=== PATIENT | female | born 1965 | race Caucasian/White ===

== ENCOUNTER → 2016-12-09 | Outpatient (CLI) | payer MEDICAID ==
--- NOTE | 2016-12-12 08:13 | MM ---
Reason for exam: additional evaluation requested from prior study. Last mammogram was performed 1 year ago. History: Patient is postmenopausal. Family history of breast cancer in maternal grandmother at age 60. Benign US LT VAD breast biopsy of the left breast, September 08, 2011. Benign US right guided mammotome of the right breast, February 15, 2008. Physical Findings: Nurse Summary: 1.5cm nodule in the right axilla (nurse dw). MG 3D Diag Mammo W/Cad CANDACE Bilateral CC and MLO view(s) were taken. XCCL view(s) were taken of the right breast. Prior study comparison: December 08, 2015, bilateral MG 3d screening mammo w/cad. November 24, 2014, bilateral MG screening mammo w CAD. The breast tissue is heterogeneously dense. This may lower the sensitivity of mammography. Previous ultrasound biopsy in the left breast. Stable right axillary lymph node. No significant new findings when compared with previous films. These results were verbally communicated with the patient and result sheet given to the patient on 12/09/16. ASSESSMENT: Benign, BI-RAD 2 RECOMMENDATION: Routine screening mammogram of both breasts in 1 year.
== END | disposition home or self-care (01) ==
LOC: RADMAMWWP 14:53
PROVIDERS: ATTEND Surgery
DX: R92.8 Other abnormal and inconclusive findings on diagnostic imaging of breast (principal)
CPT/HCPCS: G0204; G0279

== ENCOUNTER → 2016-12-09 | Outpatient (CLI) | payer MEDICAID ==
--- NOTE | 2016-12-12 08:15 | USB ---
Reason for exam: follow-up at short interval from prior study. History: Patient is postmenopausal. Family history of breast cancer in maternal grandmother at age 60. Benign US LT VAD breast biopsy of the left breast, September 08, 2011. Benign US right guided mammotome of the right breast, February 15, 2008. US Breast RT Right breast ultrasound includes all four quadrants, the retroareolar region and axilla. Finding demonstrate a 4 x 4 x 4mm oval, cystic lesion at 6 o'clock and a 4 x 3 x 3mm oval, cystic lesion at 9 o'clock and a 1.8 x 0.7 x 0.7cm oval, solid, hypoechoic lesion at 10 o'clock palpable. These results were verbally communicated with the patient and result sheet given to the patient on 12/09/16. ASSESSMENT: Benign, BI-RAD 2 RECOMMENDATION: Routine screening mammogram of both breasts in 1 year.
== END | disposition home or self-care (01) ==
LOC: RADUSWWP 15:13
PROVIDERS: ATTEND Surgery
DX: R92.8 Other abnormal and inconclusive findings on diagnostic imaging of breast (principal)

== ENCOUNTER → 2017-05-19 | Outpatient (CLI) | payer MEDICAID ==
[2017-05-19 10:50] LABS: Basophils % (A) 1 %; CH 28.8; CHCM 34.6; Eosinophils # (A) 0.2 k/uL (0-0.7); Eosinophils % (A) 3 %; HCT 39.5 % (34.0-46.0); HDW 2.61; HGB 13.2 gm/dL (11.4-16.0); Luc # (Auto) 0.14; Luc % (Auto) 2; Lymphocytes # (A) 1.4 k/uL (1.0-4.8); Lymphocytes % (A) 25 %; MCHC 33.5 g/dL (31.0-37.0); MCV 83.5 fL (80.0-100.0); Mean Platelet Volume 7.1; Monocytes # (A) 0.4 k/uL (0-1.0); Monocytes % (A) 7 %; Neutrophils # (A) 3.6 k/uL (1.3-7.7); Neutrophils % (A) 63 %; RBC 4.73 m/uL (3.80-5.40); RDW 13.9 % (11.5-15.5); WBC 5.8 k/uL (3.8-10.6); WBC (Perox) 6.04
[2017-05-19 11:51] LABS: ALT 47 U/L (9-52); AST 31 U/L (14-36); Alkaline Phosphatase 125 U/L (38-126); Anion Gap 8 mmol/L; Blood Urea Nitrogen 12 mg/dL (7-17); Calcium 9.5 mg/dL (8.4-10.2); Carbon Dioxide 27 mmol/L (22-30); Chloride 105 mmol/L (98-107); Glucose 96 mg/dL (74-99); Iron 62 ug/dL (37-170); Magnesium 1.8 mg/dL (1.6-2.3); Non-African American GFR(MDRD) >60 (>60 ml/min/1.73 sqM); Potassium 4.5 mmol/L (3.5-5.1); Sodium 140 mmol/L (137-145); Total Bilirubin 0.5 mg/dL (0.2-1.3); Total Protein 6.7 g/dL (6.3-8.2)
[2017-05-19 12:14] LABS: % Iron Saturation 19.7 % (20-50); Total Iron Binding Capacity 314 ug/dL (265-497)
[2017-05-19 12:55] LABS: Vitamin B12 839 pg/mL (239-931)
[2017-05-19 14:05] LABS: Erythrocyte Sedimentation Rate 11 mm/hr (0-20)
[2017-05-19 14:23] LABS: Hemoglobin A1C 5.8 % (4.2-6.1)
== END | disposition home or self-care (01) ==
LOC: LABWHC1 10:15
PROVIDERS: ATTEND Family Medicine
DX: G62.9 Polyneuropathy, unspecified (principal); R53.83 Other fatigue; G25.81 Restless legs syndrome
CPT/HCPCS: 36415; 80053; 82306; 82607; 82728; 82746; 83036; 83540; 83550; 83735; 84207; 84425; 84439; 84443; 85025; 85652

== ENCOUNTER → 2017-05-23 | Outpatient (CLI) | payer MEDICAID ==
--- NOTE | 2017-05-23 10:35 | MR ---
EXAMINATION TYPE: MR lumbar spine wo/w con DATE OF EXAM: 05/23/2017 COMPARISON: 12/20/2011 Contrast: Gadavist 11 mL HISTORY: Lumbar Radiculopathy TECHNIQUE: T1 and T2 axial and sagittal, postcontrast T1 axial and sagittal images of the lumbar spi ne are submitted. FINDINGS: There is no abnormal signal seen within the visualized spinal cord or paraspinal soft tissu es. At L1-2 there is no disc herniation or canal stenosis. No foraminal encroachment. Hypertrophic change of the facets noted. At L2-3 there is degenerative disc disease. Marked facet arthropathy and central disc bulging. Neural foramina remain patent. There does appear to be encroachment bilaterally to a mild degree. Broad-bas ed central disc bulging or protrusion results in moderate effacement of the thecal sac and AP canal s tenosis. At L3-4 there is postsurgical change appears stable. No obvious canal stenosis or foraminal encroachm ent. At L4-5 there is stable grade 1 anterolisthesis with no canal stenosis. Neural foramina appear to be preserved. At L5-S1 there is postsurgical changes with no canal stenosis or foraminal encroachment. No definite disc herniation seen. IMPRESSION: 1. Postsurgical levels are stable with no canal stenosis, focal herniation or foraminal encroachment. 2. There is progression of degenerative disc disease L2-3 with broad-based central disc bulging or pr otrusion and moderate effacement of thecal sac with mild bilateral foraminal encroachment and mild ca nal stenosis. 3. Stable grade 1 anterolisthesis L4 on L5.
== END | disposition home or self-care (01) ==
LOC: RADMRIMAIN 09:01
PROVIDERS: ATTEND Family Medicine
DX: M48.06 Spinal stenosis, lumbar region (principal); M51.16 Intervertebral disc disorders with radiculopathy, lumbar region; M43.16 Spondylolisthesis, lumbar region; Z98.890 Other specified postprocedural states
CPT/HCPCS: 72158; A9577

== ENCOUNTER 2018-01-03 08:22 | Day surgery (SDC) | payer MEDICAID ==
[2018-01-01 09:24] VITALS: BMI 39.5
[~2018-01-03 08:22] MED LIST: LACTATED RINGERS 1,000 ML IV SCH; LIDOCAINE 1% 20 ML VIAL (10MG/ML) FOR IV START INTRADERMA PRN
[2018-01-03 08:58] VITALS: TEMP 98.2
[2018-01-03] MEDS ORDERED: LACTATED RINGERS 1,000 ML IV ONE ×2 (09:14→09:37)
[2018-01-03] MEDS ORDERED: PROPOFOL 10 MG/ML 20 ML VIAL IV ONE (09:14)
--- NOTE | 2018-01-03 09:16 | P.GSHP ---
History of Present Illness H&P Date: 01/03/18 Chief Complaint: Colon cancer screening Patient here today for colonoscopy. He has not had one before. Family history of colon polyps in her father. No bowel related complaints. Past Medical History Past Medical History: GERD/Reflux, Hypertension History of Any Multi-Drug Resistant Organisms: None Reported Past Surgical History: Back Surgery, Cholecystectomy, Hysterectomy Additional Past Surgical History / Comment(s): LUMBAR FUSION X 2 Past Anesthesia/Blood Transfusion Reactions: No Reported Reaction Past Psychological History: No Psychological Hx Reported Smoking Status: Never smoker Past Alcohol Use History: None Reported Past Drug Use History: None Reported - Past Family History Father Family Medical History: Cancer Medications and Allergies Home Medications Medication Instructions Recorded Confirmed Type Calcium Carbonate/Vitamin D3 1 each PO DAILY 07/19/17 01/01/18 History [Calcium 500-Vit D3 200 Tablet] Losartan Potassium 100 mg PO DAILY 07/19/17 01/03/18 History Meloxicam 15 mg PO DAILY 07/19/17 01/01/18 History Multivitamins, Thera [Multivitamin 1 each PO DAILY 07/19/17 01/01/18 History (formulary)] Omeprazole 40 mg PO DAILY 07/19/17 01/01/18 History Cholecalciferol [Vitamin D3] 5,000 unit PO DAILY 01/01/18 01/01/18 History DULoxetine HCL [Cymbalta] 60 mg PO DAILY 01/01/18 01/01/18 History Vitamin E 1,000 unit PO DAILY 01/01/18 01/01/18 History Melatonin 1 tab PO HS 01/03/18 01/03/18 History Allergies Allergy/AdvReac Type Severity Reaction Status Date / Time amoxicillin [From Augmentin] Allergy Rapid Verified 01/01/18 09:21 Heart Rate ciprofloxacin [From Cipro] Allergy Rash/Hives Verified 01/01/18 09:21 clavulanic acid Allergy Rapid Verified 01/01/18 09:21 [From Augmentin] Heart Rate gabapentin [From Neurontin] AdvReac CONSTANT Verified 01/01/18 09:21 UNCONTROLLED CRYING pregabalin [From Lyrica] AdvReac SEVERE HTN Verified 01/01/18 09:21 AND WATER RETENTION Surgical - Exam Vital Signs Temp Pulse Resp BP Pulse Ox 98.2 F 98 18 142/86 97 01/03/18 08:56 01/03/18 08:56 01/03/18 08:56 01/03/18 08:56 01/03/18 08:56 Physical exam: General: Well-developed, well-nourished HEENT: Normocephalic, sclerae nonicteric Abdomen: Nontender, nondistended Extremities: No edema Neuro: Alert and oriented Assessment and Plan (1) Colon cancer screening Narrative/Plan: Will proceed with colonoscopy. Current Visit: Yes Status: Acute Code(s): Z12.11 - ENCOUNTER FOR SCREENING FOR MALIGNANT NEOPLASM OF COLON SNOMED Code(s): 502920151
--- NOTE | 2018-01-03 09:33 | P.PCN ---
Date of Procedure: 01/03/18 Procedure(s) Performed: PREOPERATIVE DIAGNOSIS: Colon cancer screening POSTOPERATIVE DIAGNOSIS: Normal exam PROCEDURE: Colonoscopy ANESTHESIA: MAC SURGEON: Rico Fink M.D. SPECIMENS: None ENDOSCOPIC PROCEDURE: The patient was placed on the endoscopy table in the left decubitus position. The Olympus colonoscope was inserted into the anus and passed under direct visualization to the base of the cecum. The appendiceal orifice was visualized. From that point the scope was slowly withdrawn inspecting all surfaces carefully. There were no neoplastic inflammatory or polypoid lesions throughout the cecum, ascending, transverse, descending, sigmoid and rectum. There was no diverticulosis noted. Digital rectal examination was normal. The patient was taken to the recovery room in stable condition per anesthesia guidelines. RECOMMENDATIONS: Increase fiber. Follow-up colonoscopy in 10 years.
[2018-01-03 09:41] VITALS: RESP 16
[2018-01-03 09:59] VITALS: BP 122/80; PULSE 71
== END 2018-01-03 10:19 | disposition home or self-care (01) ==
LOC: ORWHC2ENDO 08:22
PROVIDERS: ATTEND Surgery
DX: Z12.11 Encounter for screening for malignant neoplasm of colon (principal); Z83.71 Family history of colonic polyps; K21.9 Gastro-esophageal reflux disease without esophagitis; I10 Essential (primary) hypertension; Z79.1 Long term (current) use of non-steroidal anti-inflammatories (NSAID); Z79.899 Other long term (current) drug therapy; Z88.1 Allergy status to other antibiotic agents
CPT/HCPCS: 45378; J2704

== ENCOUNTER → 2018-01-26 | Outpatient (CLI) | payer MEDICAID ==
--- NOTE | 2018-01-26 10:50 | MM ---
Reason for exam: additional evaluation requested from prior study. Last mammogram was performed 1 year and 2 months ago. History: Patient is postmenopausal. Family history of breast cancer in maternal grandmother at age 60. Benign US LT VAD breast biopsy of the left breast, September 08, 2011. Benign US right guided mammotome of the right breast, February 15, 2008. Physical Findings: Nurse did not find any significant physical abnormalities on exam. MG 3D Diag Mammo W/Cad CANDACE Bilateral CC and MLO view(s) were taken. Prior study comparison: December 09, 2016, bilateral MG 3d diag mammo w/cad CANDACE. December 08, 2015, bilateral MG 3d screening mammo w/cad. The breast tissue is heterogeneously dense. This may lower the sensitivity of mammography. Previous mammotome biopsy in the left breast. No significant new findings when compared with previous films. These results were verbally communicated with the patient and result sheet given to the patient on 01/26/18. ASSESSMENT: Incomplete: need additional imaging evaluation, BI-RAD 0 RECOMMENDATION: Ultrasound of both breasts.
--- NOTE | 2018-01-26 10:52 | USB ---
Reason for exam: additional evaluation requested from abnormal screening. History: Patient is postmenopausal. Family history of breast cancer in maternal grandmother at age 60. Benign US LT VAD breast biopsy of the left breast, September 08, 2011. Benign US right guided mammotome of the right breast, February 15, 2008. US Breast BILAT Right complete breast ultrasound includes all four quadrants, the retroareolar region and axilla. Finding demonstrates a 1.8 x 0.9 x 0.6cm oval, solid, hypoechoic lesion at 10 o'clock, previously biopsied. Left complete breast ultrasound includes all four quadrants, the retroareolar region and axilla. Finding demonstrates a 0.4 x 0.5 x 0.4cm cystic lesion at 12 o'clock, a 0.6 x 0.4 x 0.4cm cystic lesion at 4 o'clock and a 0.6 x 0.4 x 0.3cm cystic lesion at 8 o'clock. These results were verbally communicated with the patient and result sheet given to the patient on 01/26/18. ASSESSMENT: Benign, BI-RAD 2 RECOMMENDATION: Routine screening mammogram of both breasts in 1 year.
== END | disposition home or self-care (01) ==
LOC: RADMAMWWP 07:18
PROVIDERS: ATTEND Family Medicine
DX: R92.8 Other abnormal and inconclusive findings on diagnostic imaging of breast (principal)
CPT/HCPCS: 77062; 77066

== ENCOUNTER → 2018-09-03 | Outpatient (CLI) | payer MEDICAID ==
--- NOTE | 2018-09-03 22:42 | MR ---
EXAMINATION TYPE: MR brain wo con DATE OF EXAM: 09/03/2018 COMPARISON: NONE HISTORY: Memory loss, dizziness, headaches TECHNIQUE: Multiplanar, multisequence imaging of the brain and brainstem is performed without IV cont rast. FINDINGS: Diffusion weighted images demonstrate no evidence of a recent infarct or other diffusion abnormality. There is no extraaxial fluid collection or significant white matter signal abnormality. The ventricu lar system and cisternal spaces are normal in size and appearance. The brain volume is age appropria te. Midline structures demonstrate normal morphology. The craniocervical junction appears within normal limits. Normal vascular flow voids are present. The visualized sinuses are clear and the globes are i ntact. No suspicious fluid signal bilateral mastoid air cells is present. IMPRESSION: No significant finding is seen to account for patient's symptoms.
== END | disposition home or self-care (01) ==
LOC: RADMRIMAIN 17:53
PROVIDERS: ATTEND Family Medicine
DX: R41.3 Other amnesia (principal)
CPT/HCPCS: 70551

== ENCOUNTER → 2019-03-01 | Outpatient (CLI) | payer MEDICAID ==
--- NOTE | 2019-03-01 07:51 | US ---
EXAMINATION TYPE: US liver DATE OF EXAM: 03/01/2019 COMPARISON: NONE CLINICAL HISTORY: R74.8 ABNORMAL LEVELS. EXAM MEASUREMENTS: Liver Length: 16.5 cm Gallbladder Wall: Surgically absent cm CBD: 0.4 cm Right Kidney: 9.9 x 5.4 x 5.1 cm Pancreas: not well visualized due to midline bowel gas Liver: difficult to penetrate. There is increased echogenicity of the hepatic parenchyma with dimini shed visualization of the portal triads most commonly relating to hepatic steatosis and limiting eval uation for underlying hepatic masses. Gallbladder: Surgically absent CBD: wnl Right Kidney: No hydronephrosis or masses seen IMPRESSION: Sonographic findings most commonly related to hepatic steatosis. Correlate with liver fun ction test results.
--- NOTE | 2019-03-01 09:22 | MM ---
Reason for exam: additional evaluation requested from prior study. Last mammogram was performed 1 year and 1 month ago. History: Patient is postmenopausal. Family history of breast cancer in maternal grandmother at age 60. Benign US LT VAD breast biopsy of the left breast, September 08, 2011. Benign US right guided mammotome of the right breast, February 15, 2008. Physical Findings: Nurse Summary: less than 2cm nodule in the right breast at 8 o'clock and 10 o'clock in the right breast, a less than 1cm nodule in the left breast at 1 o'clock and 3 o'clock (nurse kp). MG 3D Diag Mammo W/Cad CANDACE Bilateral CC and MLO view(s) were taken. Prior study comparison: January 26, 2018, bilateral MG 3d diag mammo w/cad CANDACE. December 09, 2016, bilateral MG 3d diag mammo w/cad CANDACE. The breast tissue is heterogeneously dense. This may lower the sensitivity of mammography. There is a stable right oval upper outer quadrant posterior depth mass and upper outer quadrant right middle depth asymmetry. Stable let upper outer quadrant focal asymmetry. These results were verbally communicated with the patient and result sheet given to the patient on 03/01/19. ASSESSMENT: Benign, BI-RAD 2 RECOMMENDATION: Routine screening mammogram of both breasts in 1 year. (although ultrasound will be performed bilaterally as ordered)
--- NOTE | 2019-03-01 09:46 | USB ---
Reason for exam: additional evaluation requested from prior study. History: Patient is postmenopausal. Family history of breast cancer in maternal grandmother at age 60. Benign US LT VAD breast biopsy of the left breast, September 08, 2011. Benign US right guided mammotome of the right breast, February 15, 2008. US Breast BILAT Right complete breast ultrasound includes all four quadrants, the retroareolar region and axilla. Finding demonstrates a 1.3 x 0.6 x 0.9cm oval, solid lesion at 10 o'clock prior 1.8 x 0.7 x 0.9cm, previously biopsied. Left complete breast ultrasound includes all four quadrants, the retroareolar region and axilla. Finding demonstrates a 0.5 x 0.3 x 0.5cm oval, cystic lesion at 1 o'clock deep cyst, benign, a a 0.5 x 0.4 x 0.6cm oval, mixed lesion at 1 o'clock, previously 0.5 x 0.4 x 0.4cm, a 0.6 x 0.3 x 0.4cm oval, cystic lesion at 4 o'clock, prior 0.6 x 0.4 x 0.4cm and a 0.6 x 0.3 x 0.5cm oval, cystic lesion at 8 o'clock, prior 0.6 x 0.3 x 0.4cm. These results were verbally communicated with the patient and result sheet given to the patient on 03/01/19. ASSESSMENT: Probably benign, BI-RAD 3 RECOMMENDATION: Follow-up diagnostic mammogram of the left breast in 1 year. (attention 1 o'clock position)
== END | disposition home or self-care (01) ==
LOC: RADUSWWP 06:43
PROVIDERS: ATTEND Family Medicine
DX: R92.8 Other abnormal and inconclusive findings on diagnostic imaging of breast (principal); R74.8 Abnormal levels of other serum enzymes
CPT/HCPCS: 76705; 77062; 77066

== ENCOUNTER → 2019-08-19 | Outpatient (CLI) | payer MEDICAID ==
--- NOTE | 2019-08-19 15:29 | MR ---
EXAMINATION TYPE: MR lumbar spine wo/w con DATE OF EXAM: 08/19/2019 COMPARISON: 05/23/2017 HISTORY: Back pain TECHNIQUE: Multiplanar, multisequence images of the lumbar spine were acquired utilizing 12.5 mL intravenous Manolo avist gadolinium contrast. FINDINGS: Vertebral body heights of the lumbar spine are maintained. There is a very mild 1 mm grade 1 anterolisthesis of L4 on L5. This is stable from the prior of 05/23/2017. Surgical fusion of L3-L4 is also stable from the prior. Degenerative endplate changes are seen with multilevel disc desiccation. Conus medullaris is unremarkable terminating at L1-L2. Surgical resection of the posterior elements at L3-S1 is seen with fibrosis of the subcutaneous tissues and postsurgical change. L1-L2: There is a broad-based disc bulge that is right eccentric resulting in mild right neural mary inal narrowing without significant left neural foraminal narrowing. This slightly narrows the ventral subarachnoid space without significant spinal canal stenosis. Mild facet arthropathy is also seen. L2-L3: There are some limitation in evaluation given susceptibility artifact generated by the fixatio n rods and pedicular screws however there appears to be a broad-based disc bulge creating moderate bi lateral neural foraminal narrowing with mild spinal canal stenosis. L3-L4: Residual disc is bulge without significant neural foraminal narrowing or spinal canal stenosis . L4-L5: Postsurgical change of an intervertebral disc cage. No spinal canal stenosis nor neural forami nal narrowing. L5-S1: Disc desiccation is seen without spinal canal stenosis nor neural foraminal narrowing. There is paraspinal atrophy throughout. No abnormal postcontrast enhancement. IMPRESSION: 1. Similar degenerative disc disease at L1-L2 and L2-L3 with mild spinal canal stenosis at L2-L3. Kavin y slight progression in degree of neural foraminal narrowing at L2-L3, now moderate. 2. Stable postsurgical change of the lumbar spine and stable grade 1 anterolisthesis of L4 and L5. No new vertebral body height loss or malalignment. 3. No abnormal enhancement to suggest epidural fibrosis.
== END | disposition home or self-care (01) ==
LOC: RADMRIMAIN 12:32
PROVIDERS: ATTEND Internal Medicine
DX: M48.061 Spinal stenosis, lumbar region without neurogenic claudication (principal); M51.36 Other intervertebral disc degeneration, lumbar region; M43.16 Spondylolisthesis, lumbar region; Z98.890 Other specified postprocedural states
CPT/HCPCS: 72158; A9585

== ENCOUNTER → 2019-10-03 | Outpatient (CLI) | payer MEDICAID ==
[2019-10-03 16:00] VITALS: BP 127/78; PULSE 106; TEMP 98.2; BMI 41.1
[2019-10-03 18:02] LABS: HCT 45.9 % (34.0-46.0); HGB 14.9 gm/dL (11.4-16.0); MCH 27.1 pg (25.0-35.0); MCHC 32.5 g/dL (31.0-37.0); MCV 83.2 fL (80.0-100.0); Mean Platelet Volume 7.4; Platelet Count 225 k/uL (150-450); RBC 5.51 m/uL (3.80-5.40); RDW 13.7 % (11.5-15.5); WBC 10.7 k/uL (3.8-10.6)
--- NOTE | 2019-10-03 18:37 | P.HPBAR ---
Bariatric H&P - History & Physicial H&P Date: 10/03/19 History & Physicial: Visit/CC: initial clinic visit Patient initial contact: Initial weight: Initial weight in pounds: Height: 5 ft 6.5 in Initial BMI: Last weight: Current weight: 117.48 kg Current weight in pounds: 259.00 Current BMI: 41.1 [place] body weight (based on NIH guidelines): 60.101 kg Excess body weight loss: The patient is a 54 year-old F who presents for Bariatric Assessment. Patient is known to our service. Her underwent sleeve gastrectomy 3-4 years ago and has done well. She is also interested in sleeve gastrectomy at this time. 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 Patient has a history of hypertension, borderline diabetes, GERD, arthritis, chronic back pain. She is about to have her third lumbar fusion in the next month or so. BMI 41. Denies history of DVT or dysphagia. She does require a supervised weight loss grab and she has finished 2 months. History of previous lap [place], hysterectomy, back, oophorectomy. Review of Systems The patient denies any acute changes in vision or hearing, no dysphagia or odynophagia, no chest pain or shortness of breath, no dysuria or hematuria, no headache, no runny nose, no rectal bleeding or melena, no unexplained weight loss Past Medical History Past Medical History: GERD/Reflux, Hypertension History of Any Multi-Drug Resistant Organisms: None Reported Past Surgical History: Back Surgery, Cholecystectomy, Hysterectomy Additional Past Surgical History / Comment(s): LUMBAR FUSION X 2 Past Anesthesia/Blood Transfusion Reactions: No Reported Reaction Smoking Status: Never smoker - Past Family History Father Family Medical History: Cancer Surgical - Exam Vital Signs Temp Pulse BP 98.2 F 106 H 127/78 10/03/19 15:59 10/03/19 15:59 10/03/19 15:59 Physical exam: General: Well-developed, well-nourished HEENT: Normocephalic, sclerae nonicteric Abdomen: Nontender, nondistended Extremities: No edema Neuro: Alert and oriented Results - Labs 10/03/19 17:26 Abnormal Lab Results - Last 24 Hours (Table) 10/03/19 Range/Units 17:26 WBC 10.7 H (3.8-10.6) k/uL RBC 5.51 H (3.80-5.40) m/uL Bariatric Assessment & Plan (1) Morbid obesity Narrative/Plan: 54-year-old female with morbid obesity and associated comorbidities. Bariatric surgical options and their risk benefit profile discussed in detail. Patient remains interested in sleeve gastrectomy at this time. We'll tentatively plan EGD 3-4 months for now. Await psychiatric and medical clearance. Status: Acute Bariatric Checklist Checklist: Plan: Checklist: EGD: 1. Hiatal hernia: 2. H. Pylori: HgbA1c: Vitamin D: Smoking: Never smoker Primary care physician referral: Dr. Coleman Psychiatry clearance: Cardiology clearance: Sleep study: Diet journal: VTE risk score: VTE risk level: Rehab needs at discharge:
[2019-10-04 00:35] LABS: ALT 82 U/L (8-44); AST 45 U/L (13-35); African American GFR (CKD) 98.2 (60.0-200.0); Albumin/Globulin Ratio 2.29 (1.60-3.17); Alkaline Phosphatase 136 U/L (41-126); BUN/Creat Ratio 23.75 Ratio (12.00-20.00); Calcium 9.8 mg/dL (8.7-10.3); Carbon Dioxide 26.1 mmol/L (21.6-31.8); Chloride 100 mmol/L (96-109); Folate, Serum >24.0 ng/mL; Globulin 2.1 g/dL (1.6-3.3); Glucose 88 mg/dL (70-110); Non-African American GFR(CKD) 84.8 (60.0-200.0); Potassium 4.3 mmol/L (3.5-5.5); Sodium 138 mmol/L (135-145); Total Bilirubin 0.5 mg/dL (0.2-1.2); Total Protein 6.9 g/dL (6.2-8.2)
[2019-10-04 00:36] LABS: Iron 26 ug/dL (50-170)
[2019-10-04 00:45] LABS: Hemoglobin A1C 5.8 % (4.0-6.0)
== END | disposition home or self-care (01) ==
LOC: BARWHC3 14:54
PROVIDERS: ATTEND Surgery
DX: E66.01 Morbid (severe) obesity due to excess calories (principal); Z68.41 Body mass index [BMI] 40.0-44.9, adult
CPT/HCPCS: 80053; 82306; 82607; 82746; 83036; 83540; 84425; 85027; 93005; 99211

== ENCOUNTER → 2019-10-15 | Outpatient (CLI) | payer MEDICAID ==
--- NOTE | 2019-10-15 16:27 | XR ---
EXAMINATION TYPE: XR chest 2V DATE OF EXAM: 10/15/2019 COMPARISON: Prior chest x-ray 10/09/2012 HISTORY: Lumbar stenosis, preop TECHNIQUE: Frontal and lateral views of the chest are obtained. FINDINGS: There is no focal air space opacity, pleural effusion, or pneumothorax seen. The cardiac silhouette size is within normal limits. The osseous structures are intact. IMPRESSION: No acute cardiopulmonary process.
== END | disposition home or self-care (01) ==
LOC: RADXRMAIN 15:40
PROVIDERS: ATTEND Specialist
DX: M48.061 Spinal stenosis, lumbar region without neurogenic claudication (principal)
CPT/HCPCS: 71046

== ENCOUNTER → 2020-07-27 | Outpatient (CLI) | payer BC, MEDICAID ==
[2020-07-27 13:41] VITALS: BMI 36.7
== END | disposition home or self-care (01) ==
LOC: BARWHC3 08:33
PROVIDERS: ATTEND Surgery
DX: E66.01 Morbid (severe) obesity due to excess calories (principal); Z71.3 Dietary counseling and surveillance; Z68.36 Body mass index [BMI] 36.0-36.9, adult
CPT/HCPCS: 97804

== ENCOUNTER → 2020-08-04 | Outpatient (CLI) | payer BC ==
--- NOTE | 2020-08-05 08:41 | MM ---
Reason for exam: screening (asymptomatic). Last mammogram was performed 1 year and 5 months ago. History: Patient is postmenopausal. Family history of breast cancer in maternal grandmother at age 60. Benign US LT VAD breast biopsy of the left breast, September 08, 2011. Benign US right guided mammotome of the right breast, February 15, 2008. Physical Findings: A clinical breast exam by your physician is recommended on an annual basis and results should be correlated with mammographic findings. MG 3D Screening Mammo W/Cad Bilateral CC and MLO view(s) were taken. Prior study comparison: March 01, 2019, bilateral MG 3d diag mammo w/cad CANDACE. January 26, 2018, bilateral MG 3d diag mammo w/cad CANDACE. The breast tissue is heterogeneously dense. This may lower the sensitivity of mammography. Previous mammotome biopsy in the left breast. No significant changes when compared with prior studies. ASSESSMENT: Benign, BI-RAD 2 RECOMMENDATION: Routine screening mammogram of both breasts in 1 year.
== END | disposition home or self-care (01) ==
LOC: RADMAMWWP 07:09
PROVIDERS: ATTEND Family Medicine
DX: Z12.31 Encounter for screening mammogram for malignant neoplasm of breast (principal)
CPT/HCPCS: 77063; 77067

== ENCOUNTER 2020-08-11 09:16 | Day surgery (SDC) | payer BC ==
[~2020-08-11 09:16] MED LIST changes: +LIDOCAINE 1% (10MG/ML) FOR IV START INTRADERMA PRN; -LIDOCAINE 1% 20 ML VIAL (10MG/ML) FOR IV START INTRADERMA PRN
[2020-08-11 09:36] VITALS: TEMP 97.9
[2020-08-11] MEDS ORDERED: MIDAZOLAM 2 MG/2 ML VIAL ONE (10:06)
[2020-08-11] MEDS ORDERED: LIDOCAINE 1% INJ 10MG/ML (20 ML MDV) ONE (10:06)
[2020-08-11] MEDS ORDERED: PROPOFOL 10 MG/ML 20 ML VIAL IV ONE (10:06)
[2020-08-11] MEDS ORDERED: fentaNYL (PF) 50 MCG/ML 2 ML AMP ONE (10:06)
--- NOTE | 2020-08-11 10:08 | P.GSHP ---
History of Present Illness H&P Date: 08/11/20 Chief Complaint: GERD, presurgical 55-year-old female known to our service. Last seen in September as part of a preoperative bariatric surgery workup. Here today for upper endoscopy. Mild reflux. No dysphagia. Past Medical History Past Medical History: GERD/Reflux, Hypertension Additional Past Medical History / Comment(s): nerve damage and pain from spinal fusion History of Any Multi-Drug Resistant Organisms: None Reported Past Surgical History: Back Surgery, Cholecystectomy, Hysterectomy Additional Past Surgical History / Comment(s): LUMBAR FUSION X 3 Past Anesthesia/Blood Transfusion Reactions: No Reported Reaction Smoking Status: Never smoker - Past Family History Father Family Medical History: Cancer Medications and Allergies Home Medications Medication Instructions Recorded Confirmed Type Calcium Carbonate/Vitamin D3 1 each PO DAILY 07/19/17 08/11/20 History [Calcium 500-Vit D3 200 Tablet] Losartan Potassium 100 mg PO DAILY 07/19/17 08/11/20 History Meloxicam 7.5 mg PO BID 07/19/17 08/11/20 History Multivitamins, Thera [Multivitamin 1 each PO DAILY 07/19/17 08/11/20 History (formulary)] Omeprazole 40 mg PO DAILY 07/19/17 08/11/20 History Cholecalciferol [Vitamin D3] 5,000 unit PO DAILY 01/01/18 08/11/20 History Amitriptyline HCl [Elavil] 50 mg PO HS 07/27/20 08/11/20 History tiZANidine [Zanaflex] 4 mg PO TID 07/27/20 08/11/20 History HYDROcodone/APAP 5-325MG [[place] 1 tab PO TID 07/29/20 08/11/20 History 5-325] Iron 325 mg PO DAILY 07/29/20 08/11/20 History Sennosides/Docusate Sodium [Senna 1 tab PO DAILY 07/29/20 08/11/20 History Plus 8.6-50 mg Tablet] Gabapentin 300 mg PO BID 08/06/20 08/11/20 History Allergies Allergy/AdvReac Type Severity Reaction Status Date / Time amoxicillin [From Augmentin] Allergy Rapid Verified 08/11/20 09:39 Heart Rate ciprofloxacin [From Cipro] Allergy Rash/Hives Verified 08/11/20 09:39 clavulanic acid Allergy Rapid Verified 08/11/20 09:39 [From Augmentin] Heart Rate pregabalin [From Lyrica] AdvReac SEVERE HTN Verified 08/11/20 09:39 AND WATER RETENTION Surgical - Exam Vital Signs Temp Pulse Resp BP Pulse Ox 97.9 F 88 18 182/98 99 08/11/20 09:33 08/11/20 09:33 08/11/20 09:33 08/11/20 09:33 08/11/20 09:33 Physical exam: General: Well-developed, well-nourished HEENT: Normocephalic, sclerae nonicteric Abdomen: Nontender, nondistended Extremities: No edema Neuro: Alert and oriented Assessment and Plan (1) GERD (gastroesophageal reflux disease) Narrative/Plan: Will proceed with upper endoscopy Current Visit: Yes Status: Acute Code(s): K21.9 - GASTRO-ESOPHAGEAL REFLUX DISEASE WITHOUT ESOPHAGITIS SNOMED Code(s): 948871750
--- NOTE | 2020-08-11 10:16 | P.PCN ---
Date of Procedure: 08/11/20 Procedure(s) Performed: Preoperative Dx: GERD Postoperative Dx: Mild gastritis Procedure: EGD with Bx Anesthesia: Sedation Endoscopist: Dr. Fink Specimens: Antrum Endoscopic Procedure: The patient was on the endoscopy table in the left decubitus position. The Olympus gastroscope was inserted into the oropharynx and passed under direct visualization to the region of the third portion of the duodenum. From that point the scope was slowly withdrawn inspecting all surfaces carefully. There were no neoplastic inflammatory or polypoid lesions throughout the duodenum. The pylorus was widely patent. The stomach was carefully inspected. There was mild gastritis present. A biopsy of the antrum took place to rule out H. pylori. Retroflexion revealed a normal hiatus. The esophagus was then carefully examined. There were no neoplastic inflammatory or polypoid lesions throughout the visualized esophagus. The patient was then taken to the recovery room in stable condition per anesthesia guidelines. Recommendations: Await biopsy results. Proceed with sleeve gastrectomy.
[2020-08-11 10:23] VITALS: RESP 16
[2020-08-11 10:45] VITALS: BP 140/80; PULSE 72
== END 2020-08-11 11:00 | disposition home or self-care (01) ==
LOC: ORWHC2ENDO 09:16
PROVIDERS: ATTEND Surgery
DX: K29.50 Unspecified chronic gastritis without bleeding (principal); K21.9 Gastro-esophageal reflux disease without esophagitis; I10 Essential (primary) hypertension; G58.8 Other specified mononeuropathies; Z98.1 Arthrodesis status; Z90.49 Acquired absence of other specified parts of digestive tract; Z90.710 Acquired absence of both cervix and uterus; Z80.9 Family history of malignant neoplasm, unspecified; Z79.1 Long term (current) use of non-steroidal anti-inflammatories (NSAID); Z79.891 Long term (current) use of opiate analgesic; Z79.899 Other long term (current) drug therapy; Z88.1 Allergy status to other antibiotic agents; Z88.0 Allergy status to penicillin; Z88.8 Allergy status to other drugs, medicaments and biological substances
CPT/HCPCS: 88305; 43239; J2250; J2001; J3010; J2704

== ENCOUNTER → 2020-08-25 | Outpatient (CLI) | payer BC ==
--- NOTE | 2020-08-26 15:56 | PN ---
PROGRESS NOTE [facility] PROGRESS NOTE: DATE OF SERVICE: 08/25/2020 CHIEF COMPLAINT: Morbid obesity. INTERVAL HISTORY: The patient returns for preoperative evaluation. The patient underwent recent EGD in late July showing mild gastritis. No other changes to the recent history and physical. She has her last appointment with her primary care physician next week. On physical exam, her abdomen is soft, non-tender, non-distended. IMPRESSION/PLAN: V[id number]-old female with morbid obesity. Recent EGD results reviewed. Surgical consent form reviewed in detail. The patient understands and would like to proceed with laparoscopic sleeve gastrectomy. Await final primary care physician documentation. MMODL / IJN: [id number] /
== END | disposition home or self-care (01) ==
CPT/HCPCS: 99211

== ENCOUNTER → 2020-09-23 | Outpatient (CLI) | payer BC ==
[2020-09-23 10:23] LABS: Basophils % (A) 1 %; Eosinophils # (A) 0.1 k/uL (0-0.7); Eosinophils % (A) 2 %; HCT 40.8 % (34.0-46.0); HGB 13.7 gm/dL (11.4-16.0); Lymphocytes # (A) 1.5 k/uL (1.0-4.8); Lymphocytes % (A) 33 %; MCH 28.8 pg (25.0-35.0); MCHC 33.5 g/dL (31.0-37.0); MCV 85.8 fL (80.0-100.0); Mean Platelet Volume 7.2; Monocytes # (A) 0.3 k/uL (0-1.0); Monocytes % (A) 6 %; Neutrophils # (A) 2.7 k/uL (1.3-7.7); Neutrophils % (A) 57 %; Platelet Count 196 k/uL (150-450); RBC 4.76 m/uL (3.80-5.40); WBC 4.7 k/uL (3.8-10.6)
[2020-09-23 10:35] LABS: ALT 54 U/L (4-34); AST 47 U/L (14-36); African American GFR (CKD) >90 (>60 ml/min/1.73 sqM); Albumin 4.3 g/dL (3.5-5.0); Alkaline Phosphatase 112 U/L (38-126); Anion Gap 6 mmol/L; Blood Urea Nitrogen 17 mg/dL (7-17); Calcium 9.5 mg/dL (8.4-10.2); Carbon Dioxide 29 mmol/L (22-30); Chloride 106 mmol/L (98-107); Glucose 82 mg/dL (74-99); Non-African American GFR(CKD) >90 (>60 ml/min/1.73 sqM); Potassium 4.2 mmol/L (3.5-5.1); Sodium 141 mmol/L (137-145); Total Bilirubin 0.6 mg/dL (0.2-1.3)
== END | disposition home or self-care (01) ==
LOC: LABWHC1 09:36
PROVIDERS: ATTEND Surgery
DX: Z01.818 Encounter for other preprocedural examination (principal)
CPT/HCPCS: 36415; 80053; 85025; 93005

== ENCOUNTER 2020-10-19 09:54 | Inpatient (IN) | payer BC ==
--- NOTE | 2020-10-19 09:18 | P.GSHP ---
History of Present Illness H&P Date: 10/19/20 Chief Complaint: Morbid obesity 55-year-old female presents today for laparoscopic sleeve gastrectomy. Patient's had sleeve gastrectomy several years ago. The patient is a nurse herself and is interested in surgical weight loss. Patient would like to avoid gastric bypass because of some of the long-term risks associated with that surgery. Patient suffers from hypertension and borderline diabetes, GERD, arthritis, chronic back pain. No smoking history. Denies history of DVT or dysphagia. BMI 41 1 evaluated in September of last year. Recent BMI 35. - Review of Systems Comment: The patient denies any acute changes in vision or hearing, no dysphagia or odynophagia, no chest pain or shortness of breath, no dysuria or hematuria, no headache, no runny nose, no rectal bleeding or melena, no unexplained weight loss Past Medical History Past Medical History: GERD/Reflux, Hypertension, Musculoskeletal Disorder, Osteoarthritis (OA) Additional Past Medical History / Comment(s): nerve damage and pain from spinal fusion, states EKG done in September 2019 prior to her back surgery was "abnormal", saw local dry ice maker(Yan), states stress test was WNL History of Any Multi-Drug Resistant Organisms: None Reported Past Surgical History: Back Surgery, Cholecystectomy, Hysterectomy Additional Past Surgical History / Comment(s): LUMBAR FUSION X 3-most recent November 2019 Past Anesthesia/Blood Transfusion Reactions: No Reported Reaction Additional Past Anesthesia/Blood Transfusion Reaction / Comment(s): no hx. of blood transfusion Smoking Status: Never smoker - Past Family History Father Family Medical History: Cancer Medications and Allergies Home Medications Medication Instructions Recorded Confirmed Type Calcium Carbonate/Vitamin D3 1 each PO TID 07/19/17 10/12/20 History [Calcium 500-Vit D3 200 Tablet] Losartan Potassium 100 mg PO DAILY 07/19/17 10/12/20 History Meloxicam 7.5 mg PO BID 07/19/17 10/12/20 History Multivitamins, Thera [Multivitamin 1 each PO DAILY 07/19/17 10/12/20 History (formulary)] Omeprazole 40 mg PO DAILY 07/19/17 10/12/20 History Cholecalciferol [Vitamin D3] 5,000 unit PO DAILY 01/01/18 10/12/20 History Amitriptyline HCl [Elavil] 50 mg PO HS 07/27/20 10/12/20 History tiZANidine [Zanaflex] 4 mg PO TID 07/27/20 10/12/20 History HYDROcodone/APAP 5-325MG [[place] 1 tab PO TID 07/29/20 10/12/20 History 5-325] Iron 325 mg PO DAILY 07/29/20 10/12/20 History Sennosides/Docusate Sodium [Senna 1 tab PO DAILY 07/29/20 10/12/20 History Plus 8.6-50 mg Tablet] Gabapentin 300 mg PO QAM 08/06/20 10/12/20 History Gabapentin [Neurontin] 600 mg PO HS 10/12/20 10/12/20 History Allergies Allergy/AdvReac Type Severity Reaction Status Date / Time amoxicillin [From Augmentin] Allergy Rapid Verified 10/12/20 14:08 Heart Rate ciprofloxacin [From Cipro] Allergy Rash/Hives Verified 10/12/20 14:08 clavulanic acid Allergy Rapid Verified 10/12/20 14:08 [From Augmentin] Heart Rate pregabalin [From Lyrica] AdvReac SEVERE HTN Verified 10/12/20 14:08 AND WATER RETENTION Surgical - Exam Physical exam: General: Well-developed, well-nourished HEENT: Normocephalic, sclerae nonicteric Abdomen: Nontender, nondistended Extremities: No edema Neuro: Alert and oriented Assessment and Plan (1) Morbid obesity Narrative/Plan: 55-year-old female here today for sleeve gastrectomy. We'll proceed with laparoscopic sleeve gastrectomy, possible open. The risks of bleeding, infection, stenosis, stricture, leak, abscess, fistula formation, peritonitis, poor weight loss, reflux, vomiting, conversion to an open procedure, aborting sleeve gastrectomy, OK, PE, DVT, and were discussed. The patient understands and wishes to proceed. Status: Acute Code(s): E66.01 - MORBID (SEVERE) OBESITY DUE TO EXCESS CALORIES SNOMED Code(s): 618306345
[2020-10-19] MEDS ORDERED: DEXAMETHASONE SOD PHOSPHATE 4 MG/ML 1 ML VIAL IV ONE (10:31)
[2020-10-19] MEDS ORDERED: ONDANSETRON 4 MG/2 ML VIAL IVP ONE (10:31)
[2020-10-19] MEDS ORDERED: LIDOCAINE 1% (10MG/ML) FOR IV START INTRADERMA PRN (10:31)
[2020-10-19] MEDS ORDERED: MIDAZOLAM 2 MG/2 ML VIAL IV PRN (10:31)
[2020-10-19] MEDS: LACTATED RINGERS 1,000 ML IV SCH (11:00)
[2020-10-19] MEDS ORDERED: HEPARIN SODIUM,PORCINE 5,000 UNIT/ML 1 ML VIAL ONE (11:14)
[2020-10-19] MEDS ORDERED: SCOPOLAMINE 1.5MG/72HR PATCH TRANSDERM ONE (11:15)
[2020-10-19] MEDS ORDERED: ENOXAPARIN 40 MG/0.4 ML SYRINGE SQ STA (11:38)
[2020-10-19] MEDS ORDERED: GLYCOPYRROLATE 0.2 MG/ML 2 ML VIAL ONE (12:13)
[2020-10-19] MEDS ORDERED: PROPOFOL 10 MG/ML 20 ML VIAL IV ONE (12:13)
[2020-10-19] MEDS ORDERED: NEOSTIGMINE 1 MG/ML 10 ML VIAL ONE (12:13)
[2020-10-19] MEDS ORDERED: HYDROmorphone (PF) 1 MG/ML ONE (12:13)
[2020-10-19] MEDS ORDERED: ROCURONIUM 10 MG/ML (10 ML VIAL) IV ONE (12:13)
[2020-10-19] MEDS ORDERED: SUCCINYLCHOLINE CHLORIDE 100 MG/5 ML SYR IV ONE (12:13)
[2020-10-19] MEDS ORDERED: MIDAZOLAM 2 MG/2 ML VIAL ONE (12:13)
[2020-10-19] MEDS ORDERED: LIDOCAINE 1% INJ 10MG/ML (20 ML MDV) ONE (12:13)
[2020-10-19] MEDS ORDERED: fentaNYL (PF) 50 MCG/ML 2 ML AMP ONE (12:13)
[2020-10-19] MEDS ORDERED: BUPIVACAINE (PF) 0.25% 30 ML VIAL SQ ONE (12:18)
[2020-10-19] MEDS ORDERED: LACTATED RINGERS 1,000 ML IV ONE (13:48)
[2020-10-19] MEDS ORDERED: NALOXONE 0.4 MG/ML 1 ML VIAL IV PRN (13:54)
[2020-10-19] MEDS ORDERED: diphenhydrAMINE 50 MG/ML 1 ML VIAL IVP PRN (13:54)
--- NOTE | 2020-10-19 13:58 | P.OP ---
Date of Procedure: 10/19/20 Procedure(s) Performed: PREOPERATIVE DIAGNOSIS: Morbid obesity, hypertension, GERD, chronic back pain POSTOPERATIVE DIAGNOSIS: Same PROCEDURE: Laparoscopic sleeve gastrectomy SURGEON: Danae EBL: Minimal ANESTHESIA: General COMPLICATIONS: None OPERATIVE PROCEDURE: Patient was placed in the operating table in the supine position. She was placed under general anesthesia at that time. The abdomen was prepped and draped in sterile fashion after the patient was placed in lithotomy. A 5 mm optical trocar was used to enter the abdominal cavity in the left upper quadrant. Insufflation took place to 15 millimeters mercury. An additional right subxiphoid 5 mm trocar was then placed under direct visualiza tion and then removed. 2 additional 5 mm trochars were placed in the right upper quadrant and left upper quadrant under direct visualization and a 15 mm trocar in the supraumbilical location. The liver was retracted using a medium Esha liver retractor through the right subxiphoid trocar site. The hiatus was inspected. The patient had no visible hiatal hernia the patient's liver appeared normal. At that point I moved to the mid aspect of the greater curvature the stomach. The short gastric vasculature was divided using a LigaSure device proximally. I then switched and divided the short gastrics distally to a 3-4 cm from the pylorus. The dissection took place up to the left diaphragmatic crura at that point. The posterior short gastrics were likewise divided using the LigaSure device. Once the stomach was fully mobilized the blunt tipped 40-Maltese bougie dilator was advanced into the stomach and advanced all the way to the prepyloric location. A black echelon 60 stapler was utilized and fired tangentially across the antrum taking care to avoid narrowing at the incisura angularis. Subsequent firings of the stapler took place. A total of 4 green echelon 60 staplers with Ethicon staple line reinforcement took place proximally staying on the outer edge of our dilator. The oral gastric tube was reinserted. The stomach was insufflated with approximately 100 mL of methylene blue. No evidence of leak or obstruction was seen. Tisseel fibrin glue was used along the length of the staple line. Prior to doing so there were 2 areas of oozing one at the most proximal extent of our staple line and one at the most distal extent of our staple line. This was controlled using 12 mm clips. The stomach remnant was removed from the 15 mm trocar site without difficulty. The fascia at the 15 more site was closed using interrupted 0 Vicryl sutures with the laparoscopic suture passer and Uziel Eliot technique. The insufflation was evacuated. The skin at all 5 incisions were closed using 4-0 Monocryl sutures. Skin glue was then applied. DISPOSITION: Stable to recovery room
[2020-10-19] MEDS: HYDROmorphone 0.5 MG/0.5 ML SYRINGE IVP PRN ×5 (14:35→15:40)
[2020-10-19] MEDS ORDERED: ACETAMINOPHEN IV (For NPO) 1,000 MG/100 ML VIAL IVPB ONE (14:45)
[2020-10-19] MEDS: fentaNYL (PF) 50 MCG/ML 2 ML AMP IVP ONE ×2 (15:51→16:35)
[2020-10-19] MEDS ORDERED: ACETAMINOPHEN IV (For NPO) 1,000 MG in EMPTY BAG 1 BAG IVPB ONE (18:00)
[2020-10-19] MEDS: ALBUTEROL NEBULIZED 2.5 MG/3 ML INHALATION SCH (20:01)
[2020-10-19] MEDS: HYDROmorphone 1 MG/ML 1 ML SYRINGE IVP PRN (20:27)
[2020-10-19] MEDS: ONDANSETRON 4 MG/2 ML VIAL IVP PRN (20:27)
[2020-10-19] MEDS: 0.9% NACL WITH KCL 20 MEQ/L 1,000 ML IV SCH (20:34)
[2020-10-20] MEDS: HYDROmorphone 1 MG/ML 1 ML SYRINGE IVP PRN ×2 (00:11→04:53)
[2020-10-20] MEDS: ONDANSETRON 4 MG/2 ML VIAL IVP PRN ×2 (04:53→12:36)
[2020-10-20] MEDS: 0.9% NACL WITH KCL 20 MEQ/L 1,000 ML IV SCH ×2 (04:54→09:05)
[2020-10-20] MEDS: ENOXAPARIN 40 MG/0.4 ML SYRINGE SQ SCH ×2 (05:01→17:57)
[2020-10-20] MEDS: ALBUTEROL NEBULIZED 2.5 MG/3 ML INHALATION SCH ×4 (07:39→21:15)
[2020-10-20] MEDS: PANTOPRAZOLE 40 MG/10 ML VIAL IV SCH (07:48)
[2020-10-20] MEDS: 1: MVI, ADULT NO.4 WITH VIT K 10 ML, THIAMINE 100 MG, FOLIC ACID 1 MG, POTASSIUM CHLORID IV SCH ×12 (09:04→16:06)
[2020-10-20] MEDS: SIMETHICONE 40 MG/0.6 ML DROPS 2,000 MG/30 ML BOTTLE PO PRN ×2 (09:48→16:08)
[2020-10-20] MEDS: HYOSCYAMINE ORAL DROPS 1.875 MG/15 ML BOTTLE PO PRN (09:49)
[2020-10-20 10:28] LABS: Basophils # (A) 0.01 X 10*3/uL (0.00-0.10); Basophils % (A) 0.1 %; Eosinophils # (A) 0 X 10*3/uL (0.04-0.35); Eosinophils % (A) 0 %; HCT 38.4 % (37.2-46.3); HGB 12.6 g/dL (12.0-15.0); Lymphocytes # (A) 1.16 X 10*3/uL (0.90-5.00); MCH 28.5 pg (27.0-32.0); MCHC 32.8 g/dL (32.0-37.0); MCV 86.9 fL (80.0-97.0); Mean Platelet Volume 10.6 fL (9.5-12.2); Neutrophils # (A) 6.91 X 10*3/uL (1.80-7.70); Neutrophils % (A) 77.7 %; Platelet Count 222 X 10*3/uL (140-440); RBC 4.42 X 10*6/uL (4.10-5.20); RDW 12.8 % (11.5-14.5)
[2020-10-20 10:39] VITALS: BMI 34.7
[2020-10-20 10:51] LABS: African American GFR (CKD) 120.6 (60.0-200.0); Anion Gap 8.3 mmol/L (4.00-12.00); Calcium 8.8 mg/dL (8.7-10.3); Carbon Dioxide 27.7 mmol/L (21.6-31.8); Magnesium 1.9 mg/dL (1.5-2.4); Non-African American GFR(CKD) 104.1 (60.0-200.0); Phosphorus 3.8 mg/dL (2.4-5.1); Potassium 4.5 mmol/L (3.5-5.5)
--- NOTE | 2020-10-20 11:08 | P.PN ---
<Christel Giordano - Last Filed: 10/20/20 11:00> Subjective Progress Note Date: 10/20/20 CHIEF COMPLAINT: Morbid obesity HISTORY OF PRESENT ILLNESS: Patient is status post laparoscopic sleeve gastrectomy. She is complaining of nausea and gas pains this morning. She did have some dry heaves. She did just receive her Levsin and simethicone drops. She is complaining of abdominal pain. The Dilaudid does make her nauseous. She has been up and ambulating in the hallway. She is scheduled for her upper GI this morning. Afebrile WBC 8.9 hemoglobin 12.6 magnesium 1.9 creatinine 0.6 PHYSICAL EXAM: VITAL SIGNS: Reviewed. GENERAL: Well-developed in no acute distress. HEENT: No sclera icterus. Extraocular movements grossly intact. Moist buccal mucosa. Head is atraumatic, normocephalic. ABDOMEN: Soft. Nondistended. Incision sites clean dry and intact NEUROLOGIC: Alert and oriented. Cranial nerves II through XII grossly intact. ASSESSMENT: 1. Morbid obesity status post laparoscopic sleeve gastrectomy, postop day #1 2. Hypertension 3. GERD 4. Chronic back pain PLAN: -Follow up on upper GI results -Add IV Tylenol for pain -Continue IV fluids -Continue Zofran as needed for nausea -Continue the simethicone and Levsin drops for gas pains -Encourage patient to ambulate and use incentive spirometer -GI prophylaxis Protonix and DVT prophylaxis Lovenox Physician Financial Systems Administrator note has been reviewed by physician. Signing provider agrees with the documented findings, assessment, and plan of care. Objective - Vital Signs Vital signs: Vital Signs Temp 98.9 F 10/20/20 08:00 Pulse 93 10/20/20 01:55 Resp 16 10/20/20 08:00 BP 146/75 10/20/20 08:00 Pulse Ox 98 10/20/20 08:00 Intake & Output 10/19/20 10/20/20 10/20/20 18:59 06:59 18:59 Intake Total 1650 Output Total 5 Balance 1645 Weight 97.8 kg 97.8 kg Intake: IV 1650 Output: Estimated Blood Loss 5 Other: # Voids 1 - Labs CBC & Chem 7: 10/20/20 06:56 10/20/20 06:56 Labs: Abnormal Lab Results - Last 24 Hours (Table) 10/20/20 Range/Units 06:56 Eosinophils # 0 L (0.04-0.35) X 10*3/uL <Rico Fink - Last Filed: 10/20/20 12:04> Subjective As above. Patient says her pain is improved today from yesterday. Heading down for upper GI at this time. Labs and vital signs noted. Keep nothing by mouth until upper GI Objective - Vital Signs Vital signs: Vital Signs Temp 98.9 F 10/20/20 08:00 Pulse 93 10/20/20 01:55 Resp 16 10/20/20 11:13 BP 146/75 10/20/20 08:00 Pulse Ox 98 10/20/20 08:00 Intake & Output 10/19/20 10/20/20 10/20/20 18:59 06:59 18:59 Intake Total 1650 Output Total 5 Balance 1645 Weight 97.8 kg 97.8 kg Intake: IV 1650 Output: Estimated Blood Loss 5 Other: # Voids 1 - Labs CBC & Chem 7: 10/20/20 06:56 10/20/20 06:56 Labs: Abnormal Lab Results - Last 24 Hours (Table) 10/20/20 Range/Units 06:56 Eosinophils # 0 L (0.04-0.35) X 10*3/uL Assessment and Plan (1) Morbid obesity Current Visit: Yes Status: Acute Code(s): E66.01 - MORBID (SEVERE) OBESITY DUE TO EXCESS CALORIES SNOMED Code(s): 313806350
[2020-10-20] MEDS: LACTATED RINGERS 1,000 ML IV SCH (11:13)
[2020-10-20] MEDS: ACETAMINOPHEN IV (For NPO) 1,000 MG in EMPTY BAG 1 BAG IVPB SCH ×2 (12:37→17:59)
[2020-10-20] MEDS: KETOROLAC 15 MG/ML 1 ML VIAL IVP SCH ×2 (12:38→17:57)
--- NOTE | 2020-10-20 12:54 | FL ---
EXAMINATION TYPE: FL UGI DATE OF EXAM: 10/20/2020 CLINICAL HISTORY: Status post gastric sleeve Contrast: Omnipaque 350 50 mL The patient ingested contrast without difficulty or delay. Noted are postsurgical changes of gastric sleeve. There is no evidence for leak or obstruction. Contrast is noted within the duodenum. IMPRESSION: Post-surgical change of gastric sleeve without evidence for obstruction or leak at this point in time.
--- NOTE | 2020-10-20 14:41 | P.CONS ---
History of Present Illness - Reason for Consult Management of hypertension - History of Present Illness 55-year-old the adal female was admitted for laparoscopic sleeve gastrectomy patient is still having nausea still having significant dry heaving and abdominal discomfort in the epigastric area. Patient had a barium swallow which didn't show any obstruction or leakage. Patient does have any fever chills patient doesn't have any surgical drains at this time patient had a mild low- grade fever which is not an expected of 4 surgery denied any dysuria cough. Patient still remains nothing by mouth. Patient did not pass gas yet Review of Systems REVIEW OF SYSTEMS: CONSTITUTIONAL: No fever, no malaise, no fatigue. HEENT: No recent visual problems or hearing problems. Denied any sore throat. CARDIOVASCULAR: No chest pain, orthopnea, PND, no palpitations, no syncope. PULMONARY: No shortness of breath, no cough, no hemoptysis. GASTROINTESTINAL: As mentioned in HPI NEUROLOGICAL: No headaches, no weakness, no numbness. HEMATOLOGICAL: Denies any bleeding or petechiae. GENITOURINARY: Denies any burning micturition, frequency, or urgency. MUSCULOSKELETAL/RHEUMATOLOGICAL: Denies any joint pain, swelling, or any muscle pain. ENDOCRINE: Denies any polyuria or polydipsia. The rest of the 14-point review of systems is negative. Past Medical History Past Medical History: GERD/Reflux, Hypertension, Musculoskeletal Disorder, Osteoarthritis (OA) Additional Past Medical History / Comment(s): nerve damage and pain from spinal fusion, states EKG done in September 2019 prior to her back surgery was "abnormal", saw local header operator(Yan), states stress test was WNL History of Any Multi-Drug Resistant Organisms: None Reported Past Surgical History: Back Surgery, Cholecystectomy, Hysterectomy Additional Past Surgical History / Comment(s): LUMBAR FUSION X 3-most recent November 2019, Gastric sleeve (10/19/2020) Past Anesthesia/Blood Transfusion Reactions: No Reported Reaction Additional Past Anesthesia/Blood Transfusion Reaction / Comm: no hx. of blood transfusion Past Psychological History: No Psychological Hx Reported Smoking Status: Never smoker Past Alcohol Use History: None Reported Past Drug Use History: None Reported - Past Family History Father Family Medical History: Cancer Medications and Allergies Home Medications Medication Instructions Recorded Confirmed Type Calcium Carbonate/Vitamin D3 1 each PO TID 07/19/17 10/12/20 History [Calcium 500-Vit D3 200 Tablet] Losartan Potassium 100 mg PO DAILY 07/19/17 10/12/20 History Meloxicam 7.5 mg PO BID 07/19/17 10/12/20 History Multivitamins, Thera [Multivitamin 1 each PO DAILY 07/19/17 10/12/20 History (formulary)] Omeprazole 40 mg PO DAILY 07/19/17 10/12/20 History Cholecalciferol [Vitamin D3] 5,000 unit PO DAILY 01/01/18 10/12/20 History Amitriptyline HCl [Elavil] 50 mg PO HS 07/27/20 10/12/20 History tiZANidine [Zanaflex] 4 mg PO TID 07/27/20 10/12/20 History HYDROcodone/APAP 5-325MG [[place] 1 tab PO TID 07/29/20 10/12/20 History 5-325] Iron 325 mg PO DAILY 07/29/20 10/12/20 History Sennosides/Docusate Sodium [Senna 1 tab PO DAILY 07/29/20 10/12/20 History Plus 8.6-50 mg Tablet] Gabapentin 300 mg PO QAM 08/06/20 10/12/20 History Gabapentin [Neurontin] 600 mg PO HS 10/12/20 10/12/20 History Allergies Allergy/AdvReac Type Severity Reaction Status Date / Time amoxicillin [From Augmentin] Allergy Rapid Verified 10/19/20 10:42 Heart Rate ciprofloxacin [From Cipro] Allergy Rash/Hives Verified 10/19/20 10:42 clavulanic acid Allergy Rapid Verified 10/19/20 10:42 [From Augmentin] Heart Rate pregabalin [From Lyrica] AdvReac SEVERE HTN Verified 10/19/20 10:42 AND WATER RETENTION Physical Exam Vitals: Vital Signs Temp Pulse Resp BP Pulse Ox 10/20/20 11:13 16 10/20/20 08:00 98.9 F 16 146/75 98 10/20/20 01:55 99.7 F H 93 140/73 93 L 10/19/20 20:07 82 152/78 10/19/20 20:01 98 10/19/20 20:00 16 10/19/20 19:51 81 166/83 98 10/19/20 19:36 81 157/96 98 10/19/20 19:21 78 168/94 99 10/19/20 19:06 97.8 F 81 161/98 98 10/19/20 18:51 78 162/96 99 10/19/20 18:26 81 167/90 98 10/19/20 18:11 83 165/92 98 10/19/20 17:56 78 158/89 98 10/19/20 17:45 88 156/99 94 L 10/19/20 17:36 82 153/83 95 10/19/20 16:45 86 16 161/888 98 10/19/20 16:15 82 16 152/81 99 10/19/20 16:00 85 16 160/89 99 10/19/20 15:45 80 16 166/92 93 L 10/19/20 15:30 77 16 166/97 94 L 10/19/20 15:15 75 16 154/81 100 10/19/20 15:00 71 16 150/81 99 10/19/20 14:45 76 16 153/81 99 Intake and Output 10/19/20 10/20/20 10/20/20 22:59 06:59 14:59 Intake Total 600 Balance 600 Intake: IV 600 Other: # Voids 1 Weight 97.8 kg PHYSICAL EXAMINATION: GENERAL: The patient is alert and oriented x3, not in any acute distress. Well developed, well nourished. HEENT: Pupils are round and equally reacting to light. EOMI. No scleral icterus. No conjunctival pallor. Normocephalic, atraumatic. No pharyngeal erythema. No thyromegaly. CARDIOVASCULAR: S1 and S2 present. No murmurs, rubs, or gallops. PULMONARY: Chest is clear to auscultation, no wheezing or crackles. ABDOMEN: Abdominal binder in place MUSCULOSKELETAL: No joint swelling or deformity. EXTREMITIES: No cyanosis, clubbing, or pedal edema. NEUROLOGICAL: Gross neurological examination did not reveal any focal deficits. SKIN: No rashes. Results CBC & Chem 7: 10/20/20 06:56 10/20/20 06:56 Labs: Abnormal Lab Results - Last 24 Hours (Table) 10/20/20 Range/Units 06:56 Eosinophils # 0 L (0.04-0.35) X 10*3/uL Assessment and Plan Plan: -Hypertension: Patient uses losartan at home this can be started when patient can tolerate oral diet. We'll continue to monitor the blood pressure -Gastroesophageal reflux disease -Obesity is postischemic gastrectomy postoperative day one postoperative management as per primary service -Chronic low back pain, neuropathy for the for which patient is on gabapentin which was restarted DVT prophylaxis: As per primary service
[2020-10-20] MEDS: GABAPENTIN 300 MG CAP PO SCH (22:30)
[2020-10-20] MEDS: AMITRIPTYLINE HCL 50 MG TAB PO SCH (22:30)
[2020-10-21] MEDS: HYOSCYAMINE ORAL DROPS 1.875 MG/15 ML BOTTLE PO PRN ×3 (00:16→20:24)
[2020-10-21] MEDS: SIMETHICONE 40 MG/0.6 ML DROPS 2,000 MG/30 ML BOTTLE PO PRN ×3 (00:16→20:25)
[2020-10-21] MEDS: ONDANSETRON 4 MG/2 ML VIAL IVP PRN (00:16)
[2020-10-21] MEDS: KETOROLAC 15 MG/ML 1 ML VIAL IVP SCH ×5 (00:17→23:55)
[2020-10-21] MEDS: ACETAMINOPHEN IV (For NPO) 1,000 MG in EMPTY BAG 1 BAG IVPB SCH ×2 (00:17→05:29)
[2020-10-21 02:13] VITALS: RESP 18
[2020-10-21] MEDS: ENOXAPARIN 40 MG/0.4 ML SYRINGE SQ SCH ×2 (05:31→17:00)
[2020-10-21] MEDS: 1: MVI, ADULT NO.4 WITH VIT K 10 ML, THIAMINE 100 MG, FOLIC ACID 1 MG, POTASSIUM CHLORID IV SCH ×18 (07:02→23:56)
[2020-10-21] MEDS ORDERED: bisacodyL 5 MG TABLET.DR PO PRN (08:00)
[2020-10-21] MEDS: ALBUTEROL NEBULIZED 2.5 MG/3 ML INHALATION SCH ×4 (08:03→21:09)
[2020-10-21] MEDS: PANTOPRAZOLE 40 MG/10 ML VIAL IV SCH (08:56)
[2020-10-21] MEDS: LOSARTAN 50 MG TAB PO SCH (08:57)
[2020-10-21] MEDS: GABAPENTIN 300 MG CAP PO SCH ×2 (08:57→20:30)
[2020-10-21] MEDS ORDERED: NON FORMULARY DRUG (Omeprazole [Omeprazole] 40 MG Capsule.Dr) PO SCH (09:00)
[2020-10-21 09:16] LABS: Basophils # (A) 0.02 X 10*3/uL (0.00-0.10); Basophils % (A) 0.3 %; Eosinophils # (A) 0.03 X 10*3/uL (0.04-0.35); Eosinophils % (A) 0.4 %; HCT 34.2 % (37.2-46.3); HGB 11.1 g/dL (12.0-15.0); Lymphocytes # (A) 1.43 X 10*3/uL (0.90-5.00); Lymphocytes % (A) 20.8 %; MCH 28.8 pg (27.0-32.0); MCHC 32.5 g/dL (32.0-37.0); MCV 88.8 fL (80.0-97.0); Mean Platelet Volume 10.9 fL (9.5-12.2); Monocytes % (A) 8.7 %; Neutrophils # (A) 4.79 X 10*3/uL (1.80-7.70); Neutrophils % (A) 69.5 %; Platelet Count 176 X 10*3/uL (140-440); RBC 3.85 X 10*6/uL (4.10-5.20); WBC 6.89 X 10*3/uL (4.50-10.00)
--- NOTE | 2020-10-21 11:38 | P.PN ---
Subjective Progress Note Date: 10/21/20 Principal diagnosis: Morbid obesity Patient doing well today. Pain is much improved. Still having some GERD symptoms and not drinking much. Only about 5 ounces so far today. Objective - Vital Signs Vital signs: Vital Signs Temp 98.3 F 10/21/20 07:35 Pulse 84 10/21/20 07:35 Resp 18 10/21/20 07:35 BP 141/85 10/21/20 07:35 Pulse Ox 95 10/21/20 07:35 Intake & Output 10/20/20 10/21/20 10/21/20 18:59 06:59 18:59 Intake Total 1021.2 Balance 1021.2 Weight 97.8 kg Intake: Intake, IV Titration 1021.2 Amount Mvi, Adult No.4 with Vit 1021.2 K 10 ml Thiamine 100 mg Folic Acid 1 mg Potassium Chloride 20 meq In Sodium Chloride 0.9% 1, 000 ml @ 100 mls/hr IV . BY DURATION [facility] Rx#: [id number] Other: Voiding Method Toilet - Exam Abdomen: Soft, nondistended, mild tenderness, incisions clean and dry - Labs CBC & Chem 7: 10/21/20 06:27 10/20/20 06:56 Labs: Abnormal Lab Results - Last 24 Hours (Table) 10/21/20 Range/Units 06:27 RBC 3.85 L (4.10-5.20) X 10*6/uL Hgb 11.1 L (12.0-15.0) g/dL Hct 34.2 L (37.2-46.3) % Eosinophils # 0.03 L (0.04-0.35) X 10*3/uL Assessment and Plan (1) Morbid obesity Narrative/Plan: Patient overall doing fairly well. Continue bariatric clear liquids. Monitor i ntake. Likely discharge tomorrow. Current Visit: Yes Status: Acute Code(s): E66.01 - MORBID (SEVERE) OBESITY DUE TO EXCESS CALORIES SNOMED Code(s): 912511646
[2020-10-21] MEDS: LACTATED RINGERS 1,000 ML IV SCH (12:48)
[2020-10-21] MEDS: AMITRIPTYLINE HCL 50 MG TAB PO SCH (20:24)
--- NOTE | 2020-10-21 20:49 | P.PN ---
Progress Note - Text Progress Note Date: 10/21/20 Presenting complaint: Sleeve gastrectomy History of presenting complaint: This is a 55-year-old patient of Dr. Vivek Wolf was chronic stable medical conditions include GERD, hypertension, prostatitis,. 6 osteoarthritis. On October 19 patient underwent sleeve gastrectomy. By Dr. Hills Today-sitting up in bed. On bariatric clear liquid diet. Some discomfort at the operative site. Has pased flatus. Has been out of bed. No nausea vomiting. Review of systems: Was done for constitutional, cardiovascular, GI, pulmonary. relevant finding as above Active Medications Albuterol Sulfate (Albuterol Nebulized 2.5 Mg/3 Ml) 2.5 mg INHALATION RT-QID [facility] Last Admin: 10/21/20 15:20 Dose: Not Given Documented by: Amitriptyline HCl (Amitriptyline Hcl 50 Mg Tab) 50 mg PO [facility] Last Admin: 10/21/20 20:24 Dose: 50 mg Documented by: Bisacodyl (Bisacodyl 5 Mg Tablet.) 15 mg PO ONCE PRN PRN Reason: Constipation Diphenhydramine HCl (Diphenhydramine 50 Mg/Ml 1 Ml Vial) 25 mg IVP Q6HR PRN PRN Reason: Itching Enoxaparin Sodium (Enoxaparin 40 Mg/0.4 Ml Syringe) 40 mg SQ Q12H [facility] Last Admin: 10/21/20 17:00 Dose: Not Given Documented by: Gabapentin (Gab[facility]entin 300 Mg Cap) [facility] [place] Last Admin: 10/21/20 08:57 Dose: Not Given Documented by: Gabapentin (Gabapentin 300 Mg Cap) 600 mg PO [facility] Last Admin: 10/21/20 20:30 Dose: Not Given Documented by: Hydromorphone HCl (Hydromorphone 1 Mg/Ml 1 Ml Syringe) 1 mg IVP Q3HR PRN PRN Reason: Pain Last Admin: 10/20/20 04:53 Dose: 1 mg Documented by: Hyoscyamine (Hyoscyamine Oral Drops 1.875 Mg/15 Ml Bottle) 0.125 mg PO Q6HR PRN PRN Reason: Esophageal Spasm Last Admin: 10/21/20 20:24 Dose: 0.125 mg Documented by: Lactated Ringer's (Lactated Ringers) 1,000 mls @ 20 mls/hr IV .Q24H [facility] Last Admin: 10/21/20 12:48 Dose: Not Given Documented by: Parenteral Vitamin Supplement 10 ml/ Thiamine HCl 100 mg/Folic Acid 1 mg/ Potassium Chloride 20 meq/ Sodium Chloride 1,021.2 mls @ 100 mls/hr IV .BY DURATION [facility] Last Admin: 10/21/20 07:02 Dose: 100 mls/hr Documented by: Potassium Chloride/Sodium Chloride (Ns-Kcl 20 Meq/L Iv Solution) 1,000 mls @ 100 mls/hr IV .BY DURATION [facility] Last Admin: 10/21/20 12:31 Dose: 100 mls/hr Documented by: Ketorolac Tromethamine (Ketorolac 15 Mg/Ml 1 Ml Vial) 15 mg IVP Q6HR [facility] Stop: 10/25/20 12:16 Last Admin: 10/21/20 17:26 Dose: 15 mg Documented by: Lidocaine HCl (Lidocaine 1% (10mg/Ml) For Iv Start) 0.1 ml INTRADERMA PER PROTOCOL PRN PRN Reason: IV Start Last Admin: 10/19/20 11:00 Dose: 0.1 ml Documented by: Losartan Potassium (Losartan 50 Mg Tab) 100 mg PO DAILY [facility] Last Admin: 10/21/20 08:57 Dose: Not Given Documented by: Naloxone HCl (Naloxone 0.4 Mg/Ml 1 Ml Vial) 0.2 mg IV Q2M PRN PRN Reason: Opioid Reversal Ondansetron HCl (Ondansetron 4 Mg/2 Ml Vial) 4 mg IVP Q8HR PRN PRN Reason: Nausea And Vomiting Last Admin: 10/21/20 00:16 Dose: 4 mg Documented by: Pantoprazole Sodium (Pantoprazole 40 Mg/10 Ml Vial) 40 mg IV DAILY [facility] Last Admin: 10/21/20 08:56 Dose: 40 mg Documented by: Simethicone (Simethicone 40 Mg/0.6 Ml Drops 2,000 Mg/30 Ml Bottle) 40 mg PO Q6HR PRN PRN Reason: Bloating Last Admin: 10/21/20 20:25 Dose: 40 mg Documented by: On examination: VITAL SIGNS: 98.5, 75, 18, 123/73, 96% room air GENERAL APPEARANCE: Sitting up in bed, not in distress. HEENT: Normal external appearance of nose and ear. Oral cavity normal EYES: Pupils equal. Conjunctiva normal. NECK: JVD not raised. Mass not palpable. RESPIRATORY: Respiratory effort normal. Lungs clear to auscultation. CARDIOVASCULAR: First and second sounds normal. No edema. ABDOMEN: Soft. Upper abdominal tenderness, no guarding rigidity Liver and spleen not palpable.. No mass palpable. PSYCHIATRY: Alert and oriented x3. Mood and affect normal. INVESTIGATIONS, reviewed in the clinical context: White count 6.99 hemoglobin 11.1 platelets 176 potassium 4.5 crit 0.6 Upper GI fluoroscopy-no evidence of obstruction or leak Assessment: -Status post sleeve gastrectomy. Postprocedure patient is having trouble taking down liquids. Limited intake. -Obesity BMI 34.8 -GERD -Essential hypertension -Primary osteoarthritis -Chronic back pain, has had prior surgery. Plan: Encouraged patient to ambulate. Questions answered. Also told patient to remain in upright position. As far as possible. Thank you Dr. Hills
[2020-10-22] MEDS: ENOXAPARIN 40 MG/0.4 ML SYRINGE SQ SCH (05:44)
[2020-10-22] MEDS: KETOROLAC 15 MG/ML 1 ML VIAL IVP SCH ×2 (05:45→14:21)
[2020-10-22] MEDS: ALBUTEROL NEBULIZED 2.5 MG/3 ML INHALATION SCH ×3 (07:08→15:40)
[2020-10-22] MEDS: PANTOPRAZOLE 40 MG/10 ML VIAL IV SCH (09:35)
[2020-10-22] MEDS: GABAPENTIN 300 MG CAP PO SCH (09:35)
[2020-10-22] MEDS: LOSARTAN 50 MG TAB PO SCH (09:35)
[2020-10-22 10:53] VITALS: PULSE 84
[2020-10-22 14:10] VITALS: BP 128/84; TEMP 99.6
[2020-10-22] MEDS: LACTATED RINGERS 1,000 ML IV SCH (14:36)
[2020-10-22] MEDS: 1: MVI, ADULT NO.4 WITH VIT K 10 ML, THIAMINE 100 MG, FOLIC ACID 1 MG, POTASSIUM CHLORID IV SCH ×6 (14:36)
--- NOTE | 2020-10-22 14:50 | P.DS ---
<Christel Giordano - Last Filed: 10/22/20 14:46> Providers Expected date of discharge: 10/22/20 Hospital Course: Discharge diagnosis 1. Morbid obesity status post laparoscopic sleeve gastrectomy 2. Hypertension 3. GERD 4. Chronic back pain Hospital course This is a 55-year-old female with a known history of morbid obesity she is status post laparoscopic sleeve gastrectomy. She tolerated surgery well. She is tolerating the bariatric clear liquid diet. Upper GI shows postsurgical change of gastric sleeve without evidence of obstruction or leak. She is having bowel movements. She is up and ambulating. She is afebrile. Patient is stable for discharge. Physician Conveyor Loader note has been reviewed by physician. Signing provider agrees with the documented findings, assessment, and plan of care. Patient Condition at Discharge: Stable Plan - Discharge Summary Discharge Rx Participant: Yes New Discharge Prescriptions: New bisacodyL [Dulcolax] 5 mg PO DAILY PRN #10 tablet. PRN Reason: Constipation Simethicone 40 mg/0.6 ml Drops [Mylicon Drops] 40 mg PO PCHS PRN #30 ml PRN Reason: Gas Ondansetron Odt [Zofran Odt] 4 mg PO Q8HR PRN #9 tab PRN Reason: Nausea Continue Omeprazole 40 mg PO DAILY Multivitamins, Thera [Multivitamin (formulary)] 1 each PO DAILY Losartan Potassium 100 mg PO DAILY Calcium Carbonate/Vitamin D3 [Calcium 500-Vit D3 5 Mcg (200 Iu)] 1 each PO TID Cholecalciferol [Vitamin D3 (25 Mcg = 1000 Iu)] 5,000 unit PO DAILY Amitriptyline HCl [Elavil] 50 mg PO HS tiZANidine [Zanaflex] 4 mg PO TID HYDROcodone/APAP 5-325MG [Anton 5-325] 1 tab PO TID Sennosides/Docusate Sodium [Senna Plus 8.6-50 mg Tablet] 1 tab PO DAILY Gabapentin 300 mg PO QAM Gabapentin [Neurontin] 600 mg PO HS Discontinued Meloxicam 7.5 mg PO BID Iron 325 mg PO DAILY Discharge Medication List Calcium Carbonate/Vitamin D3 [Calcium 500-Vit D3 5 Mcg (200 Iu)] 1 each PO TID 07/19/17 [History] Losartan Potassium 100 mg PO DAILY 07/19/17 [History] Multivitamins, Thera [Multivitamin (formulary)] 1 each PO DAILY 07/19/17 [History] Omeprazole 40 mg PO DAILY 07/19/17 [History] Cholecalciferol [Vitamin D3 (25 Mcg = 1000 Iu)] 5,000 unit PO DAILY 01/01/18 [History] Amitriptyline HCl [Elavil] 50 mg PO HS 07/27/20 [History] tiZANidine [Zanaflex] 4 mg PO TID 07/27/20 [History] HYDROcodone/APAP 5-325MG [Anton 5-325] 1 tab PO TID 07/29/20 [History] Sennosides/Docusate Sodium [Senna Plus 8.6-50 mg Tablet] 1 tab PO DAILY 07/29/20 [History] Gabapentin 300 mg PO QAM 08/06/20 [History] Gabapentin [Neurontin] 600 mg PO HS 10/12/20 [History] Ondansetron Odt [Zofran Odt] 4 mg PO Q8HR PRN #9 tab 10/22/20 [Rx] Simethicone 40 mg/0.6 ml Drops [Mylicon Drops] 40 mg PO PCHS PRN #30 ml 10/22/20 [Rx] bisacodyL [Dulcolax] 5 mg PO DAILY PRN #10 tablet. 10/22/20 [Rx] Follow up Appointment(s)/Referral(s): Vivek Wolf MD [Primary Care Provider] - 10/29/20 10:30 am [place], [place] [NON-STAFF] - 10/27/20 1:00 pm Patient Instructions/Handouts: Nutrition after Bariatric Surgery (DC), Laparoscopic Sleeve Gastrectomy (DC) Activity/Diet/Wound Care/Special Instructions: Patient okay for be discharged by Dr. Mccormick No driving while taking Anton No lifting over 10 pounds You may shower. No soaking or tub baths for 2 weeks Very light activity until you are reevaluated at your follow up appointment with your surgeon Discharge Disposition: HOME SELF-CARE <Rico Fink - Last Filed: 10/22/20 15:43> Providers Date of admission: 10/19/20 10:14 Attending physician: Rico Fink Consults: 10/19/20 13:54 Consult Physician Routine Consulting Provider: Richi Mccormick Consult Reason/Comments: Medical management Do you want consulting provider notified?: Yes Primary care physician: Vivek Wolf - Discharge Diagnosis(es) (1) Morbid obesity Current Visit: Yes Status: Acute Hospital Course: As above. Patient doing well. She would like to go home. Tolerating good volume of liquids. Follow-up next Monday.
--- NOTE | 2020-10-23 18:49 | P.PN ---
Progress Note - Text Progress Note Date: 10/22/20 Presenting complaint: Sleeve gastrectomy History of presenting complaint: This is a 55-year-old patient of Dr. Vivek Wolf was chronic stable medical conditions include GERD, hypertension, prostatitis,. osteoarthritis. On October 19 patient underwent sleeve gastrectomy. By Dr. Hills Today-sitting up. Feeling much better. Able to tolerate to bariatric liquid diet. No nausea vomiting. Up and about. Review of systems: Was done for constitutional, cardiovascular, GI, pulmonary. relevant finding as above Current medications reviewed in today's electronic records On examination: VITAL SIGNS: 99.6, 84, 18, 128/84, 98% room air GENERAL APPEARANCE: Sitting up in chair, comfortable. HEENT: Normal external appearance of nose and ear. Oral cavity normal EYES: Pupils equal. Conjunctiva normal. NECK: JVD not raised. Mass not palpable. RESPIRATORY: Respiratory effort normal. Lungs clear to auscultation. CARDIOVASCULAR: First and second sounds normal. No edema. ABDOMEN: Soft. Mild Upper abdominal tenderness, no guarding rigidity Liver and spleen not palpable.. No mass palpable. PSYCHIATRY: Alert and oriented x3. Mood and affect normal. INVESTIGATIONS, reviewed in the clinical context: White count 6.99 hemoglobin 11.1 platelets 176 potassium 4.5 crit 0.6 Upper GI fluoroscopy-no evidence of obstruction or leak Assessment: -Status post sleeve gastrectomy. Postprocedure patient is having trouble taking down liquids. Limited intake. -Obesity BMI 34.8 -GERD -Essential hypertension -Primary osteoarthritis -Chronic back pain, has had prior surgery. Plan: Continue current medication treatment plan. Follow with PCP upon discharge. Thank you Dr. Hills
== END 2020-10-22 17:50 | disposition home or self-care (01) | DRG 621 ==
LOC: 2ORMAIN 10:14 → 4SSUR 17:01
PROVIDERS: ADMIT Surgery; ATTEND Surgery
PROC: 0DB64Z3 Excision of Stomach, Percutaneous Endoscopic Approach, Vertical (ICD-10-PCS; principal; 2020-10-19 11:30)
DX: E66.01 Morbid (severe) obesity due to excess calories (principal); G89.29 Other chronic pain; I10 Essential (primary) hypertension; K21.9 Gastro-esophageal reflux disease without esophagitis; M19.91 Primary osteoarthritis, unspecified site; R73.03 Prediabetes; Z71.3 Dietary counseling and surveillance; G62.9 Polyneuropathy, unspecified; M54.9 Dorsalgia, unspecified; Z68.34 Body mass index [BMI] 34.0-34.9, adult; K59.00 Constipation, unspecified; Z79.1 Long term (current) use of non-steroidal anti-inflammatories (NSAID); Z79.899 Other long term (current) drug therapy; Z98.1 Arthrodesis status; Z90.710 Acquired absence of both cervix and uterus; Z90.49 Acquired absence of other specified parts of digestive tract; Z88.1 Allergy status to other antibiotic agents; Z88.8 Allergy status to other drugs, medicaments and biological substances; Z80.9 Family history of malignant neoplasm, unspecified
CPT/HCPCS: 74240; 80051; 82310; 82565; 83735; 84100; 84520; 85025; 88307; 94760; 94762

== ENCOUNTER → 2020-10-27 | Outpatient (CLI) | payer BC ==
[2020-10-27 13:12] VITALS: BP 133/91; PULSE 91; RESP 16; TEMP 97.7; BMI 33.0
--- NOTE | 2020-10-27 15:39 | P.BASOAP ---
Subjective Progress Note Date: 10/27/20 Principal diagnosis: Morbid obesity Patient returns for reevaluation. Underwent sleeve gastrectomy 1 week ago. Doing well at this time. Denies pain. She has had over 80 g of protein per day. Over 55 ounces of liquids daily. No heartburn. No vomiting. Some back pain that she says is chronic. She is afebrile, heart rate normal. Objective - Vital Signs Vital signs: Vital Signs Temp 97.7 F 10/27/20 13:09 Pulse 91 10/27/20 13:09 Resp 16 10/27/20 13:09 BP 133/91 10/27/20 13:09 Pulse Ox Intake & Output 10/26/20 10/27/20 10/27/20 18:59 06:59 18:59 Weight 94.347 kg - Exam Abdomen: Soft, nondistended, ecchymosis had umbilical incision, incisions clean and dry Assessment/Plan (1) Morbid obesity Narrative/Plan: Patient doing well at this time. Continue liquid diet. Continue antiacid therapy. Follow-up 2-3 weeks. Plan: Date: 10/27/20 Initial Weight: 117.48 kg Initial BMI: 41.1 Current Weight: 94.347 kg Current BMI: 33.0 Type of Surgery: Vertical Sleeve Gastrectomy Total Volume in Band: Previous Volume: Volume Removed: Volume Added: Band Size:
== END | disposition home or self-care (01) ==
LOC: BARWHC3 12:42
PROVIDERS: ATTEND Surgery
DX: E66.01 Morbid (severe) obesity due to excess calories (principal); Z68.33 Body mass index [BMI] 33.0-33.9, adult; Z71.3 Dietary counseling and surveillance
CPT/HCPCS: 97803; 99211

== ENCOUNTER → 2020-11-17 | Outpatient (CLI) | payer BC ==
[2020-11-17 18:33] LABS: HCT 41.1 % (37.2-46.3); HGB 13.2 g/dL (12.0-15.0); MCH 28.5 pg (27.0-32.0); MCHC 32.1 g/dL (32.0-37.0); MCV 88.8 fL (80.0-97.0); Mean Platelet Volume 11.4 fL (9.5-12.2); Platelet Count 174 X 10*3/uL (140-440); RBC 4.63 X 10*6/uL (4.10-5.20); RDW 12.9 % (11.5-14.5); WBC 5.32 X 10*3/uL (4.50-10.00)
[2020-11-18 04:16] LABS: ALT 37 U/L (8-44); AST 31 U/L (13-35); African American GFR (CKD) 114.6 (60.0-200.0); Albumin/Globulin Ratio 1.92 (1.60-3.17); Alkaline Phosphatase 105 U/L (41-126); BUN/Creat Ratio 31.43 Ratio (12.00-20.00); Calcium 9.8 mg/dL (8.7-10.3); Carbon Dioxide 25.1 mmol/L (21.6-31.8); Chloride 105 mmol/L (96-109); Globulin 2.4 g/dL (1.6-3.3); Glucose 98 mg/dL (70-110); Iron 36 ug/dL (50-170); Non-African American GFR(CKD) 98.9 (60.0-200.0); Potassium 4.4 mmol/L (3.5-5.5); Sodium 141 mmol/L (135-145); Total Bilirubin 0.4 mg/dL (0.2-1.2)
[2020-11-18 04:47] LABS: Folate, Serum >24.0 ng/mL
== END | disposition home or self-care (01) ==
LOC: LABWHC1 11:35
PROVIDERS: ATTEND Surgery
DX: E55.9 Vitamin D deficiency, unspecified (principal); K90.89 Other intestinal malabsorption; E66.01 Morbid (severe) obesity due to excess calories
CPT/HCPCS: 36415; 80053; 82306; 82607; 82746; 83540; 84425; 85027

== ENCOUNTER → 2020-12-08 | Outpatient (CLI) | payer BC ==
[2020-12-08 13:11] VITALS: BP 121/80; PULSE 84; RESP 16; TEMP 98.5; BMI 30.7
--- NOTE | 2020-12-08 16:20 | P.BASOAP ---
Subjective Progress Note Date: 12/08/20 Principal diagnosis: Morbid obesity Patient returns for reevaluation. Doing well since last visit 11/10. Her 1 month labs were drawn and her iron remains low. She did start taking her supplemental iron once again. She has lost 10 pounds since last visit. She was having increased GERD symptoms although thinks it was related to the form of gabapentin that she was crushing and skin milk. Her reflux is minimal at this time. Takes Protonix 40 mg once daily. Some constipation lately. She was started on Linzess with some improvement. No pain. Objective - Vital Signs Vital signs: Vital Signs Temp 98.5 F 12/08/20 13:08 Pulse 84 12/08/20 13:08 Resp 16 12/08/20 13:08 BP 121/80 12/08/20 13:08 Pulse Ox Intake & Output 12/07/20 12/08/20 12/08/20 18:59 06:59 18:59 Weight 87.543 kg - Exam Abdomen: Soft, nontender, nondistended Assessment/Plan (1) Morbid obesity Narrative/Plan: Patient doing well at this time. Continue antiacid therapy. Continue dietary and exercise regimen. Follow-up 6 weeks. We'll check 3 month labs at that time. Monitor constipation. Plan: Date: 12/08/20 Initial Weight: 117.48 kg Initial BMI: 41.1 Current Weight: 87.543 kg Current BMI: 30.7 Type of Surgery: Total Volume in Band: Previous Volume: Volume Removed: Volume Added: Band Size:
== END ==
LOC: BARWHC3 12:45
PROVIDERS: ATTEND Surgery
DX: E66.01 Morbid (severe) obesity due to excess calories (principal); K21.9 Gastro-esophageal reflux disease without esophagitis; Z68.30 Body mass index [BMI] 30.0-30.9, adult
CPT/HCPCS: 99211

== ENCOUNTER → 2020-12-29 | Outpatient (CLI) | payer BC ==
[2020-12-29 18:48] LABS: Basophils # (A) 0.03 X 10*3/uL (0.00-0.10); Basophils % (A) 0.8 %; Eosinophils # (A) 0.05 X 10*3/uL (0.04-0.35); Eosinophils % (A) 1.3 %; HCT 45.4 % (37.2-46.3); HGB 14.2 g/dL (12.0-15.0); Lymphocytes # (A) 1.16 X 10*3/uL (0.90-5.00); Lymphocytes % (A) 30.3 %; MCH 28.1 pg (27.0-32.0); MCHC 31.3 g/dL (32.0-37.0); MCV 89.7 fL (80.0-97.0); Mean Platelet Volume 11.5 fL (9.5-12.2); Monocytes # (A) 0.35 X 10*3/uL (0.20-1.00); Monocytes % (A) 9.1 %; Neutrophils # (A) 2.23 X 10*3/uL (1.80-7.70); Neutrophils % (A) 58.2 %; Platelet Count 183 X 10*3/uL (140-440); RBC 5.06 X 10*6/uL (4.10-5.20); RDW 13.4 % (11.5-14.5); WBC 3.83 X 10*3/uL (4.50-10.00)
[2020-12-29 19:24] LABS: ALT 68 U/L (8-44); AST 41 U/L (13-35); African American GFR (CKD) 120.6 (60.0-200.0); Alkaline Phosphatase 108 U/L (41-126); BUN/Creat Ratio 28.33 Ratio (12.00-20.00); Calcium 10.2 mg/dL (8.7-10.3); Carbon Dioxide 26.9 mmol/L (21.6-31.8); Chloride 106 mmol/L (96-109); Cholesterol 180 mg/dL (0-200); Glucose 96 mg/dL (70-110); Iron 64 ug/dL (50-170); LDL Cholesterol,Calculated 107.2 mg/dL (0.0-131.0); Non-African American GFR(CKD) 104.1 (60.0-200.0); Potassium 4.1 mmol/L (3.5-5.5); Sodium 143 mmol/L (135-145); Total Bilirubin 0.5 mg/dL (0.3-1.2); Total Iron Binding Capacity 250 ug/dL (228-460); Total Protein 6.8 g/dL (6.2-8.2)
[2020-12-29 19:32] LABS: Ferritin 97.5 ng/mL (10.0-291.0)
[2020-12-29 20:47] LABS: Hemoglobin A1C 5.5 % (4.0-6.0)
[2020-12-29 21:58] LABS: Folate, Serum >24.0 ng/mL
[2020-12-29 23:15] LABS: Erythrocyte Sedimentation Rate 7 mm/Hr (0-30)
[2020-12-30 14:00] LABS: Zinc, Serum 105 ug/dL (60-130)
[2020-12-30 14:42] LABS: Vit B1(Thiamine) 36 ug/L (38-122)
[2020-12-30 14:59] LABS: Vitamin A 31 ug/dL (38-106)
[2021-01-01 07:05] LABS: Vitamin E (Alpha Tocopherol) 1804 ug/dL (500-1800)
== END | disposition home or self-care (01) ==
LOC: LABWHC1 07:56
PROVIDERS: ATTEND Family Medicine
DX: Z00.00 Encounter for general adult medical examination without abnormal findings (principal); Z98.84 Bariatric surgery status
CPT/HCPCS: 36415; 80053; 80061; 82306; 82607; 82728; 82746; 83036; 83540; 83550; 84425; 84443; 84446; 84590; 84630; 85025; 85652

== ENCOUNTER → 2021-01-26 | Outpatient (CLI) | payer BC ==
[2021-01-26 14:43] VITALS: BP 124/78; PULSE 93; TEMP 98.1; BMI 31.3
--- NOTE | 2021-01-26 15:49 | P.BASOAP ---
Subjective Progress Note Date: 01/26/21 Principal diagnosis: Morbid obesity Patient returns for recheck. Last seen 12/08. Since then the patient had an episode of worsening reflux. Started taking Protonix twice daily along with Carafate and her symptoms have improved. She switched from Linzess to trulance for her constipation and seems to be doing better. Had recent labs performed by her primary care physician. Vitamin A and vitamin D 1 were both slightly low. She has lost 16 pounds since last visit. Objective - Vital Signs Vital signs: Vital Signs Temp 98.1 F 01/26/21 14:37 Pulse 93 01/26/21 14:37 Resp BP 124/78 01/26/21 14:37 Pulse Ox Intake & Output 01/25/21 01/26/21 01/26/21 18:59 06:59 18:59 Weight 89.358 kg - Exam Abdomen: Soft, nontender, nondistended Assessment/Plan (1) Morbid obesity Narrative/Plan: Patient doing well at this time. Continue twice a day PPIs and Carafate for now. Avoid eating or drinking within hours of bedtime. Begin vitamin B1 and vitamin A supplementation. Follow-up visit 4-6 weeks. Plan: Date: 01/26/21 Initial Weight: 117.48 kg Initial BMI: 41.1 Current Weight: 89.358 kg Current BMI: 31.3 Type of Surgery: Total Volume in Band: Previous Volume: Volume Removed: Volume Added: Band Size:
== END ==
LOC: BARWHC3 13:15
PROVIDERS: ATTEND Surgery
DX: E66.01 Morbid (severe) obesity due to excess calories (principal); Z68.31 Body mass index [BMI] 31.0-31.9, adult; Z88.0 Allergy status to penicillin; Z88.1 Allergy status to other antibiotic agents; Z88.8 Allergy status to other drugs, medicaments and biological substances
CPT/HCPCS: 97803; 99211

== ENCOUNTER → 2021-03-23 | Outpatient (CLI) | payer BC ==
[2021-03-23 13:48] VITALS: BP 125/88; PULSE 88; RESP 16; TEMP 97.8; BMI 25.9
--- NOTE | 2021-03-23 14:23 | P.BASOAP ---
Subjective Progress Note Date: 03/23/21 Principal diagnosis: Morbid obesity Patient returns for recheck. Doing well since last visit. She has lost 14 pounds since her last visit. She is taking thiamine and vitamin A supplements. Her GERD is much better. Still taking antacids twice a day. Not taking Carafate. Objective - Vital Signs Vital signs: Vital Signs Temp 97.8 F 03/23/21 13:46 Pulse 88 03/23/21 13:46 Resp 16 03/23/21 13:46 BP 125/88 03/23/21 13:46 Pulse Ox Intake & Output 03/22/21 03/23/21 03/23/21 18:59 06:59 18:59 Weight 73.936 kg - Exam Abdomen: Soft, nontender, nondistended Assessment/Plan (1) Morbid obesity Narrative/Plan: Patient doing well at this time. Continue exercise and dietary regimen. Con tinue twice a day antiacids. Six-month lab slip provided. Follow-up 6 weeks. Plan: Date: 03/23/21 Initial Weight: 117.48 kg Initial BMI: 41.1 Current Weight: 73.936 kg Current BMI: 25.9 Type of Surgery: Total Volume in Band: Previous Volume: Volume Removed: Volume Added: Band Size:
[2021-03-23 15:26] LABS: HCT 41.2 % (34.0-46.0); HGB 13.8 gm/dL (11.4-16.0); MCH 29.3 pg (25.0-35.0); MCHC 33.4 g/dL (31.0-37.0); MCV 87.7 fL (80.0-100.0); Mean Platelet Volume 7.5; Platelet Count 162 k/uL (150-450); RDW 13.7 % (11.5-15.5); WBC 4.4 k/uL (3.8-10.6)
[2021-03-23 19:16] LABS: ALT 42 U/L (8-44); AST 34 U/L (13-35); African American GFR (CKD) 120.6 (60.0-200.0); Albumin/Globulin Ratio 2.14 (1.60-3.17); Alkaline Phosphatase 95 U/L (41-126); BUN/Creat Ratio 21.67 Ratio (12.00-20.00); Calcium 9.8 mg/dL (8.7-10.3); Carbon Dioxide 29.9 mmol/L (21.6-31.8); Chloride 104 mmol/L (96-109); Globulin 2.1 g/dL (1.6-3.3); Glucose 101 mg/dL (70-110); Iron 47 ug/dL (50-170); Non-African American GFR(CKD) 104.1 (60.0-200.0); Potassium 4.5 mmol/L (3.5-5.5); Sodium 143 mmol/L (135-145); Total Bilirubin 0.5 mg/dL (0.3-1.2); Total Protein 6.6 g/dL (6.2-8.2)
[2021-03-23 19:59] LABS: Folate, Serum >24.0 ng/mL
[2021-03-24 13:52] LABS: Vitamin A 36 ug/dL (38-106)
[2021-03-25 07:43] LABS: Vit B1(Thiamine) 79 ug/L (38-122)
== END | disposition home or self-care (01) ==
LOC: BARWHC3 13:15
PROVIDERS: ATTEND Surgery
DX: E66.01 Morbid (severe) obesity due to excess calories (principal); Z68.25 Body mass index [BMI] 25.0-25.9, adult; K90.89 Other intestinal malabsorption; E55.9 Vitamin D deficiency, unspecified
CPT/HCPCS: 80053; 82306; 82607; 82746; 83540; 84425; 84590; 85027; 99211

== ENCOUNTER → 2021-05-11 | Outpatient (CLI) | payer BC ==
[2021-05-11 13:31] VITALS: BP 133/76; PULSE 80; TEMP 98.1; BMI 24.3
--- NOTE | 2021-05-11 13:51 | P.BASOAP ---
Subjective Progress Note Date: 05/11/21 Principal diagnosis: Morbid obesity Patient returns today for reevaluation. Doing well since last visit in March. Remains on twice daily antiacids. Her heartburn is improved. She has lost 10 more pounds since her last visit. Her labs were checked last visit and she was noted to have a low iron and a low vitamin A although they are improved. Just started taking a new iron pill. No constipation. Objective - Vital Signs Vital signs: Vital Signs Temp 98.1 F 05/11/21 13:27 Pulse 80 05/11/21 13:27 Resp BP 133/76 05/11/21 13:27 Pulse Ox Intake & Output 05/10/21 05/11/21 05/11/21 18:59 06:59 18:59 Weight 69.4 kg - Exam Abdomen: Soft, nontender, nondistended Assessment/Plan (1) Morbid obesity Narrative/Plan: Patient doing well after sleeve gastrectomy in October. Continue twice daily antiacids for now. Continue vitamin A and iron supplementation. Return visit 68 weeks. Plan: Date: 05/11/21 Initial Weight: 117.48 kg Initial BMI: 41.1 Current Weight: 69.4 kg Current BMI: 24.3 Type of Surgery: Total Volume in Band: Previous Volume: Volume Removed: Volume Added: Band Size:
== END | disposition home or self-care (01) ==
LOC: BARWHC3 12:32
PROVIDERS: ATTEND Surgery
DX: E66.01 Morbid (severe) obesity due to excess calories (principal)
CPT/HCPCS: 99211

== ENCOUNTER → 2021-06-29 | Outpatient (CLI) | payer BC ==
[2021-06-29 12:51] VITALS: BP 133/82; PULSE 85; RESP 16; TEMP 98.4; BMI 23.0
--- NOTE | 2021-06-29 13:29 | P.BASOAP ---
Subjective Progress Note Date: 06/29/21 Principal diagnosis: GERD Patient returns for evaluation. She was last seen 05/11. Her reflux had been better but over the last few weeks has been much worse. Taking antiacids twice daily along with Carafate. Sleeping in a chair. Despite that she is having reflux at night. Has even noticed some projectile reflux-like episodes. No pain. She has lost 8 more pounds. Eating fine she says. No dysphagia. Objective - Vital Signs Vital signs: Vital Signs Temp 98.4 F 06/29/21 12:49 Pulse 85 06/29/21 12:49 Resp 16 06/29/21 12:49 BP 133/82 06/29/21 12:49 Pulse Ox Intake & Output 06/28/21 06/29/21 06/29/21 18:59 06:59 18:59 Weight 65.771 kg - Exam Abdomen: Soft, nontender, nondistended Assessment/Plan (1) GERD (gastroesophageal reflux disease) Narrative/Plan: 55-year-old female with worsening reflux. We'll proceed with upper endoscopy. Continue twice daily antiacids. Continue upright resting position. Plan: Date: 06/29/21 Initial Weight: 117.48 kg Initial BMI: 41.1 Current Weight: 65.771 kg Current BMI: 23.0 Type of Surgery: Total Volume in Band: Previous Volume: Volume Removed: Volume Added: Band Size:
== END | disposition home or self-care (01) ==
LOC: BARWHC3 12:36
PROVIDERS: ATTEND Surgery
DX: E66.01 Morbid (severe) obesity due to excess calories (principal); Z71.3 Dietary counseling and surveillance
CPT/HCPCS: 97803; 99211

== ENCOUNTER 2021-07-20 12:03 | Day surgery (SDC) | payer BC ==
[2021-07-19 08:37] VITALS: BMI 22.4
[~2021-07-20 12:03] MED LIST changes: -LIDOCAINE 1% (10MG/ML) FOR IV START INTRADERMA PRN
[2021-07-20 12:51] VITALS: TEMP 97.8
[2021-07-20] MEDS ORDERED: LACTATED RINGERS 1,000 ML IV ONE (12:51)
[2021-07-20] MEDS ORDERED: PROPOFOL 10 MG/ML 20 ML VIAL IV ONE (13:55)
--- NOTE | 2021-07-20 13:58 | P.GSHP ---
History of Present Illness H&P Date: 07/20/21 Chief Complaint: GERD 55-year-old female known to our service from previous sleeve gastrectomy. Over the last several months patient has had worsening gastric reflux. Patient is sleeping upright in a chair. Patient has tried Carafate and omeprazole with transient improvement but none lately. No dysphagia. Past Medical History Past Medical History: GERD/Reflux, Hypertension, Musculoskeletal Disorder, Osteoarthritis (OA) Additional Past Medical History / Comment(s): nerve damage and pain from spinal fusion, states EKG done in September 2019 prior to her back surgery was "abnormal", saw local ceramics machine operator(Yan), states stress test was WNL History of Any Multi-Drug Resistant Organisms: None Reported Past Surgical History: Back Surgery, Bariatric Surgery, Cholecystectomy, Hysterectomy Additional Past Surgical History / Comment(s): LUMBAR FUSION X 3-most recent November 2019, Gastric sleeve (10/19/2020).Sleeve Past Anesthesia/Blood Transfusion Reactions: No Reported Reaction Additional Past Anesthesia/Blood Transfusion Reaction / Comment(s): no hx. of blood transfusion Past Psychological History: No Psychological Hx Reported Smoking Status: Never smoker Past Alcohol Use History: None Reported Past Drug Use History: None Reported - Past Family History Father Family Medical History: Cancer Medications and Allergies Home Medications Medication Instructions Recorded Confirmed Type Multivitamins, Thera [Multivitamin 1 each PO DAILY 07/19/17 07/19/21 History (formulary)] Omeprazole 40 mg PO BID 07/19/17 07/19/21 History Cholecalciferol [Vitamin D3 (25 5,000 unit PO DAILY 01/01/18 07/19/21 History Mcg = 1000 Iu)] Amitriptyline HCl [Elavil] 50 mg PO HS 07/27/20 07/19/21 History tiZANidine [Zanaflex] 4 mg PO TID 07/27/20 07/19/21 History HYDROcodone/APAP 5-325MG [[place] 1 tab PO TID 07/29/20 07/19/21 History 5-325] Gabapentin 300 mg PO QAM 08/06/20 07/19/21 History Gabapentin [Neurontin] 600 mg PO HS 10/12/20 07/19/21 History Sucralfate [Carafate] 1 gm PO TID 12/16/20 07/19/21 History Plecanatide [Trulance] 3 mg PO DAILY 01/27/21 07/19/21 History Thiamine [Vitamin B-1] 50 mg PO DAILY 01/27/21 07/19/21 History Vitamin A [Vitamin A (8,000 Units 1,000 unit PO DAILY 01/27/21 07/19/21 History = 2,400 MCG)] Allergies Allergy/AdvReac Type Severity Reaction Status Date / Time amoxicillin [From Augmentin] Allergy Rapid Verified 07/19/21 08:30 Heart Rate ciprofloxacin [From Cipro] Allergy Rash/Hives Verified 07/19/21 08:30 clavulanic acid Allergy Rapid Verified 07/19/21 08:30 [From Augmentin] Heart Rate pregabalin [From Lyrica] AdvReac SEVERE HTN Verified 07/19/21 08:30 AND WATER RETENTION Surgical - Exam Vital Signs Temp Pulse Resp BP Pulse Ox 97.8 F 78 18 143/78 98 07/20/21 12:44 07/20/21 12:44 07/20/21 12:44 07/20/21 12:44 07/20/21 12:44 Physical exam: General: Well-developed, well-nourished HEENT: Normocephalic, sclerae nonicteric Abdomen: Nontender, nondistended Extremities: No edema Neuro: Alert and oriented Assessment and Plan (1) GERD (gastroesophageal reflux disease) Narrative/Plan: Will proceed with upper endoscopy Current Visit: No Status: Acute Code(s): K21.9 - GASTRO-ESOPHAGEAL REFLUX DISEASE WITHOUT ESOPHAGITIS SNOMED Code(s): 649014070
--- NOTE | 2021-07-20 14:05 | P.PCN ---
Date of Procedure: 07/20/21 Procedure(s) Performed: Preoperative Dx: GERD Postoperative Dx: Minimal gastritis post sleeve gastrectomy Procedure: EGD with Bx Anesthesia: Sedation Endoscopist: Dr. Fink Specimens: Antrum Endoscopic Procedure: The patient was on the endoscopy table in the left decubitus position. The Olympus gastroscope was inserted into the oropharynx and passed under direct visualization to the region of the third portion of the duodenum. From that point the scope was slowly withdrawn inspecting all surfaces carefully. There were no neoplastic inflammatory or polypoid lesions throughout the duodenum. The pylorus was widely patent. The stomach was carefully inspected. There was minimal gastritis present. A biopsy of the antrum took place to rule out H. pylori. The previous sleeve gastrectomy appeared appropriately patent without stricture formation. The esophagus was then carefully examined. There were no neoplastic inflammatory or polypoid lesions throughout the visualized esophagus. The patient was then taken to the recovery room in stable condition per anesthesia guidelines. Recommendations: Continue antiacid therapy. Will add Reglan. Follow-up bariatric clinic.
[2021-07-20 14:14] VITALS: RESP 16
[2021-07-20 14:26] VITALS: BP 126/79; PULSE 63
== END 2021-07-20 14:40 | disposition home or self-care (01) ==
LOC: ORWHC2ENDO 12:03
PROVIDERS: ATTEND Surgery
DX: K29.50 Unspecified chronic gastritis without bleeding (principal); Z98.84 Bariatric surgery status; K21.9 Gastro-esophageal reflux disease without esophagitis; I10 Essential (primary) hypertension; M19.90 Unspecified osteoarthritis, unspecified site; Z98.1 Arthrodesis status; G62.9 Polyneuropathy, unspecified; Z90.49 Acquired absence of other specified parts of digestive tract; Z90.710 Acquired absence of both cervix and uterus; Z80.9 Family history of malignant neoplasm, unspecified; Z79.899 Other long term (current) drug therapy; Z88.1 Allergy status to other antibiotic agents; Z88.0 Allergy status to penicillin; Z88.8 Allergy status to other drugs, medicaments and biological substances
CPT/HCPCS: 88305; 88342; 43239; J2704

== ENCOUNTER → 2021-08-24 | Outpatient (CLI) | payer BC ==
--- NOTE | 2021-08-24 13:14 | P.BASOAP ---
Subjective Progress Note Date: 08/24/21 Principal diagnosis: morbid obesity Patient returns after recent upper endoscopy. Upper endoscopy showed mild gastritis. Otherwise appeared normal. No obvious hiatal hernia. Patient still having issues with reflux. Says it is slightly better. Usually occurs about 3 times per week. Sleeping in a chair much of the time. She believes this is related to her medications more than anything else. No dysphagia. No vomiting. Prescription for Reglan was not filled so she has not tried that yet. She has lost another 4 pounds since her last visit. Recently diagnosed with osteoporosis. Objective - Exam Abdomen: Soft, nontender, nondistended Assessment/Plan (1) Morbid obesity Narrative/Plan: Patient seems to be doing slightly better than last visit. Reflux still an issue although says it's somewhat improved and is a livable situation. She is not interested in any surgical revisions at this time. We will send prescription in for Reglan 10 mg twice a day. Follow-up visit 4-6 weeks. Continue antiacids. Plan: Date: Initial Weight: 117.48 kg Initial BMI: Current Weight: Current BMI: Type of Surgery: Total Volume in Band: Previous Volume: Volume Removed: Volume Added: Band Size:
[2021-08-24 13:15] VITALS: BP 149/82; PULSE 85; TEMP 98.2; BMI 22.4
== END | disposition home or self-care (01) ==
LOC: BARWHC3 12:37
PROVIDERS: ATTEND Surgery
DX: E66.01 Morbid (severe) obesity due to excess calories (principal)
CPT/HCPCS: 99211

== ENCOUNTER → 2021-08-25 | Outpatient (CLI) | payer BC ==
--- NOTE | 2021-08-25 10:42 | XR ---
EXAM TYPE: LUMBAR SPINE X RAY SERIES COMPARISON: None HISTORY: Pain TECHNIQUE: 8 views including flexion and extension views are submitted. FINDINGS: Postsurgical changes involving the abdomen and lumbar spine are noted. There is grade 1 anterolisthes is of L4 on L5. Facet arthropathy L4-5 and L5-S1 with foraminal encroachment. Multilevel foraminal en croachment at the remaining levels suspected standing from L2 through S1. Severe degenerative disc di sease L4-5 and L5-S1. Degree of anterolisthesis changes minimally on flexion and extension views. Sli ght retrolisthesis L1 on L2 also similar in neutral and additional images. Moderate degenerative disc disease L-1-L2. IMPRESSION: 1. Postoperative change with the suspected multilevel foraminal encroachment. 2. A retrolisthesis of L1 relative to L2 and anterolisthesis L4 relative to L5. 3. Severe degenerative disc disease L4-5 and L5-S1 with moderate changes at L1-L2.
--- NOTE | 2021-08-25 10:45 | XR ---
EXAMINATION TYPE: XR thoracic spine 2V DATE OF EXAM: 08/25/2021 COMPARISON: NONE HISTORY: Pain TECHNIQUE: 3 views submitted FINDINGS: Alignment is anatomic. There is no compression deformities. Multilevel hypertrophic and degenerative changes thoracic spine. Postsurgical changes involving the abdomen and lumbar spine. No compression deformities. Degenerative change lower cervical spine. IMPRESSION: 1. Multilevel degenerative disc disease
--- NOTE | 2021-08-26 04:53 | MR ---
EXAMINATION TYPE: MR lumbar spine wo/w con DATE OF EXAM: 08/25/2021 COMPARISON: August 19, 2019 HISTORY: Back pain into left leg, dx with osteoporosis CONTRAST: Standard multiplanar, multisequence MRI departmental protocol images were obtained without contrast a nd with 6.5 mL intravenous Gadavist gadolinium contrast. The lumbar vertebra have normal alignment. There is posterior fusion surgery with metal artifact with screws and rods from L4 to L2 vertebra. There is a L1-2 disc herniation posteriorly with some mild e ncroachment on the spinal canal. There is developmentally adequate canal and no significant spinal st enosis. There is multilevel posterior laminectomy defect. The contrast images show no significant pat hologic enhancement. There is no compression fracture. I see no focal bone destruction. The sacroilia c joints are intact. There is no paraspinal mass. IMPRESSION: There is revision of the posterior fusion surgery with new fusion at L2-L3 compared to old exam. Ther e is L1 to posterior disc herniation slightly increased compared to old exam. No significant spinal s tenosis. No compression fracture.
== END | disposition home or self-care (01) ==
LOC: RADMRIMAIN 06:03
PROVIDERS: ATTEND Specialist
DX: M51.37 Other intervertebral disc degeneration, lumbosacral region (principal)
CPT/HCPCS: 72070; 72114; 72158; A9585

== ENCOUNTER → 2021-09-01 | Outpatient (CLI) | payer BC ==
--- NOTE | 2021-09-02 12:24 | MM ---
Reason for exam: screening (asymptomatic). Last mammogram was performed 1 year and 1 month ago. History: Patient is postmenopausal. Family history of breast cancer in maternal grandmother at age 60. Benign US LT VAD breast biopsy of the left breast, September 08, 2011. Benign US right guided mammotome of the right breast, February 15, 2008. Physical Findings: A clinical breast exam by your physician is recommended on an annual basis and results should be correlated with mammographic findings. MG 3D Screening Mammo W/Cad Bilateral CC and MLO view(s) were taken. Prior study comparison: August 04, 2020, bilateral MG 3d screening mammo w/cad. March 01, 2019, bilateral MG 3d diag mammo w/cad CANDACE. The breast tissue is heterogeneously dense. This may lower the sensitivity of mammography. There are benign appearing round calcifications bilaterally. Previous mammotome biopsy in the left breast. ASSESSMENT: Benign, BI-RAD 2 RECOMMENDATION: Routine screening mammogram of both breasts in 1 year.
== END | disposition home or self-care (01) ==
LOC: RADMAMWWP 07:45
PROVIDERS: ATTEND Family Medicine
DX: Z12.31 Encounter for screening mammogram for malignant neoplasm of breast (principal); Z80.3 Family history of malignant neoplasm of breast; Z78.0 Asymptomatic menopausal state
CPT/HCPCS: 77063; 77067

== ENCOUNTER 2021-10-02 05:59 | Emergency (ER) | payer BC ==
[2021-10-02 06:19] VITALS: BP 133/86; PULSE 77; RESP 18; TEMP 98
--- NOTE | 2021-10-02 06:47 | ED ---
Upper Extremity HPI - General Chief Complaint: Extremity Injury, Upper Stated Complaint: Injured Right Wrist Time Seen by Provider: 10/02/21 06:21 Source: patient, RN notes reviewed Mode of arrival: ambulatory Limitations: no limitations - History of Present Illness Initial Comments: This is a pleasant 56-year-old female presents to emergency department after injuring her right wrist. Patient states she was reaching down difficult a Tupperware bowl and indirectly struck it on the underside of a cabinet when she was lifting it. She states that this seemed to inflame her wrist which was started giving her problems for the last several months. Nancy last summer and has reinjured it several times. Patient's describing sharp pain at the volar aspect of the wrist which does radiate approximately when she moves her fingers. See her regular physician a few months ago and had plain film x-rays done then. No other injuries. No distal paresthesias. No distal or proximal injuries. History of osteoporosis. No headache, no fever or chills, no changes in vision or hearing, no sore throat or difficulty with speech, no neck pain, no chest pain or shortness of breath, no abdominal pain, no nausea or vomiting, no changes in urination or bowel movements, no numbness or tingling, no extremity pain, no skin rashes or lesions. MD Complaint: Injury to:: right Onset/Timin -: days(s) - Related Data Home Medications Medication Instructions Recorded Confirmed Multivitamins, Thera [Multivitamin 1 each PO DAILY 07/19/17 09/02/21 (formulary)] Omeprazole 40 mg PO BID 07/19/17 09/02/21 Cholecalciferol [Vitamin D3 (25 5,000 unit PO DAILY 01/01/18 09/02/21 Mcg = 1000 Iu)] Amitriptyline HCl [Elavil] 50 mg PO HS 07/27/20 09/02/21 tiZANidine [Zanaflex] 4 mg PO TID 07/27/20 09/02/21 HYDROcodone/APAP 5-325MG [Marrero 1 tab PO TID 07/29/20 09/02/21 5-325] Gabapentin 300 mg PO QAM 08/06/20 09/02/21 Gabapentin [Neurontin] 600 mg PO HS 10/12/20 09/02/21 Sucralfate [Carafate] 1 gm PO TID 12/16/20 09/02/21 Plecanatide [Trulance] 3 mg PO DAILY 01/27/21 09/02/21 Thiamine [Vitamin B-1] 50 mg PO DAILY 01/27/21 09/02/21 Vitamin A [Vitamin A (8,000 Units 1,000 unit PO DAILY 01/27/21 09/02/21 = 2,400 MCG)] Previous Rx's Medication Instructions Recorded Metoclopramide HCl [Reglan] 10 mg PO BID #30 tablet 08/24/21 Allergies Allergy/AdvReac Type Severity Reaction Status Date / Time amoxicillin [From Augmentin] Allergy Rapid Verified 10/02/21 06:19 Heart Rate ciprofloxacin [From Cipro] Allergy Rash/Hives Verified 10/02/21 06:19 clavulanic acid Allergy Rapid Verified 10/02/21 06:19 [From Augmentin] Heart Rate pregabalin [From Lyrica] AdvReac SEVERE HTN Verified 10/02/21 06:19 AND WATER RETENTION Review of Systems ROS Statement: Those systems with pertinent positive or pertinent negative responses have been documented in the HPI. ROS Other: All systems not noted in ROS Statement are negative. Past Medical History Past Medical History: GERD/Reflux, Hypertension, Musculoskeletal Disorder, Osteoarthritis (OA) Additional Past Medical History / Comment(s): nerve damage and pain from spinal fusion, states EKG done in September 2019 prior to her back surgery was "abnormal", saw local film numberer(Yan), states stress test was WNL History of Any Multi-Drug Resistant Organisms: None Reported Past Surgical History: Back Surgery, Bariatric Surgery, Cholecystectomy, Hysterectomy Additional Past Surgical History / Comment(s): LUMBAR FUSION X 3-most recent November 2019, Gastric sleeve (10/19/2020).Sleeve Past Anesthesia/Blood Transfusion Reactions: No Reported Reaction Additional Past Anesthesia/Blood Transfusion Reaction / Comment(s): no hx. of blood transfusion Past Psychological History: No Psychological Hx Reported Smoking Status: Never smoker Past Alcohol Use History: None Reported Past Drug Use History: None Reported - Past Family History Father Family Medical History: Cancer General Exam Limitations: no limitations General appearance: alert, in no apparent distress Head exam: Present: atraumatic, normocephalic, normal inspection Eye exam: Present: normal appearance, EOMI ENT exam: Present: normal exam Neck exam: Present: normal inspection Respiratory exam: Present: normal lung sounds bilaterally. Absent: respiratory distress, wheezes, rales, rhonchi, stridor Cardiovascular Exam: Present: regular rate, normal rhythm, normal heart sounds. Absent: systolic murmur, diastolic murmur, rubs, gallop, clicks Right Elbow exam: Present: normal inspection, full ROM. Absent: tenderness Forearm Wrist exam: Present: normal inspection, tenderness, other (She has some tenderness over the volar aspect of the wrist . Mildly positive Willem's test.). Absent: full ROM, swelling, abrasion, laceration, ecchymosis, deformity, crepitus, dislocation, erythema, tenderness over anatomical snuff box, pain with axial thumb loading Hand Wrist exam: Present: normal inspection, full ROM. Absent: tenderness Back exam: Present: normal inspection Neurological exam: Present: alert, oriented X3, CN II-XII intact Psychiatric exam: Present: normal affect, normal mood Skin exam: Present: warm, dry, intact, normal color. Absent: rash Course Vital Signs 10/02/21 06:16 Temperature 98.0 F Pulse Rate 77 Respiratory 18 Rate Blood Pressure 133/86 O2 Sat by Pulse 100 Oximetry Medical Decision Making - Medical Decision Making Has had recurrent problems with her right wrist since injuring it last summer. Symptoms consistent with tendinopathy. Certainly ligament sprain from the injury last night could be involved as well. There was no definitive evidence of fracture. We did discuss the possibility of occult fracture. Patient has her own wrist brace as well as an upcoming appointment with orthopedics on October 25. Patient requesting a sooner appointment. We'll give her follow-up with Dr. Fu. Patient was told to return to the ER for any signs or symptoms worsen. Told to return immediately if any other problems arise. All questions answered. Treatment plan discussed. Patient in agreement Disposition Clinical Impression: Right wrist sprain, Right wrist tendonitis, Dislocation of shoulder region Disposition: HOME SELF-CARE Condition: Good Instructions (If sedation given, give patient instructions): Wrist Injury (ED) Additional Instructions: Make an appointment with the orthopedic physician as discussed. Continue the wrist brace as discussed. Is patient prescribed a controlled substance at d/c from ED?: No Referrals: Daniele Fu MD [STAFF PHYSICIAN] - 10/06/21 Time of Disposition: 06:43
--- NOTE | 2021-10-02 06:50 | XR ---
Right wrist HISTORY: Pain. COMPARISON: None. TECHNIQUE: 4 views the right wrist are obtained. FINDINGS: There is no fracture, dislocation, intraosseous or intra-articular abnormality. Soft tissues are norm al. IMPRESSION: No significant abnormality seen.
== END 2021-10-02 07:07 | disposition home or self-care (01) ==
LOC: EC 05:59
DX: S43.004A Unspecified dislocation of right shoulder joint, initial encounter (principal); S63.501A Unspecified sprain of right wrist, initial encounter; M77.8 Other enthesopathies, not elsewhere classified; I10 Essential (primary) hypertension; K21.9 Gastro-esophageal reflux disease without esophagitis; M19.90 Unspecified osteoarthritis, unspecified site; Z88.1 Allergy status to other antibiotic agents; Z88.8 Allergy status to other drugs, medicaments and biological substances; Z88.0 Allergy status to penicillin; Z79.899 Other long term (current) drug therapy; W22.8XXA Striking against or struck by other objects, initial encounter; Y92.009 Unspecified place in unspecified non-institutional (private) residence as the place of occurrence of the external cause
CPT/HCPCS: 99283

== ENCOUNTER → 2021-10-22 | Outpatient (CLI) | payer BC ==
[2021-10-22] MEDS: SODIUM CHLORIDE 0.9% 500 ML 500 ML in EMPTY BAG 1 BAG IV PRN (11:00)
[2021-10-22] MEDS: ZOLEDRONIC ACID 5 MG in SODIUM CHLORIDE 0.9% 100 ML IV NR (11:00)
[2021-10-22 11:17] VITALS: BP 114/75; PULSE 90; RESP 16; TEMP 98.7
== END | disposition home or self-care (01) ==
LOC: PROCWHC3 10:33
PROVIDERS: ATTEND Family Medicine
DX: M81.0 Age-related osteoporosis without current pathological fracture (principal)
CPT/HCPCS: 96365; J3489

== ENCOUNTER → 2021-10-26 | Outpatient (CLI) | payer BC ==
[2021-10-26 10:17] VITALS: BP 129/78; PULSE 77; RESP 16; TEMP 98.1; BMI 22.7
--- NOTE | 2021-10-26 10:47 | P.BASOAP ---
Subjective Progress Note Date: 10/26/21 Principal diagnosis: Morbid obesity 56-year-old female returns for follow-up. Last seen in August. She has gained 2 pounds since last visit. Patient did fill her prescription for Reglan and thinks it's help her reflux. She in fact is only had 2 episodes of reflux since her last visit. She is now sleeping in her bed with only minimal elevation. Objective - Vital Signs Vital signs: Vital Signs Temp 98.1 F 10/26/21 10:15 Pulse 77 10/26/21 10:15 Resp 16 10/26/21 10:15 BP 129/78 10/26/21 10:15 Pulse Ox Intake & Output 10/25/21 10/26/21 10/26/21 18:59 06:59 18:59 Weight 64.864 kg - Exam Abdomen: Soft, nontender, nondistended Assessment/Plan (1) Morbid obesity Narrative/Plan: Patient doing well this time. Continue antiacid therapy and Reglan. Check one year labs. Follow-up 6 months. Plan: Date: 10/26/21 Initial Weight: 117.48 kg Initial BMI: 41.1 Current Weight: 64.864 kg Current BMI: 22.7 Type of Surgery: Vertical Sleeve Gastrectomy Total Volume in Band: Previous Volume: Volume Removed: Volume Added: Band Size:
== END ==
LOC: BARWHC3 09:51
PROVIDERS: ATTEND Surgery
DX: E66.01 Morbid (severe) obesity due to excess calories (principal); Z68.22 Body mass index [BMI] 22.0-22.9, adult
CPT/HCPCS: 99211

== ENCOUNTER → 2021-11-16 | Outpatient (CLI) | payer BC ==
[2021-11-16 14:34] LABS: HCT 39.8 % (37.2-46.3); HGB 12.4 g/dL (12.0-15.0); MCH 29.1 pg (27.0-32.0); MCHC 31.2 g/dL (32.0-37.0); MCV 93.4 fL (80.0-97.0); Mean Platelet Volume 10.5 fL (9.5-12.2); NRBC Per 100 WBC 0 /100 WBCS (0.0-0.0); Platelet Count 174 X 10*3/uL (140-440); RBC 4.26 X 10*6/uL (4.10-5.20); RDW 13.2 % (11.5-14.5); WBC 5.88 X 10*3/uL (4.50-10.00)
[2021-11-16 16:26] LABS: African American GFR (CKD) 124.1 (60.0-200.0); Albumin 4.5 g/dL (3.8-4.9); Albumin/Globulin Ratio 1.75 (1.60-3.17); Anion Gap 13.7 mmol/L (10.00-18.00); BUN/Creat Ratio 28.76 Ratio (12.00-20.00); Blood Urea Nitrogen 15.5 mg/dL (9.0-27.0); Calcium 9.6 mg/dL (8.7-10.3); Carbon Dioxide 27.2 mmol/L (20.0-27.5); Globulin 2.6 g/dL (1.6-3.3); Non-African American GFR(CKD) 107.1 (60.0-200.0); Potassium 4.1 mmol/L (3.5-5.5); Total Bilirubin 0.2 mg/dL (0.30-1.20)
[2021-11-18 06:04] LABS: Vitamin A 47 ug/dL (38-106)
== END | disposition home or self-care (01) ==
LOC: LABWHC1 09:04
PROVIDERS: ATTEND Surgery
DX: K90.89 Other intestinal malabsorption (principal); E66.01 Morbid (severe) obesity due to excess calories; E55.9 Vitamin D deficiency, unspecified
CPT/HCPCS: 36415; 80053; 82306; 82607; 82746; 83540; 84425; 84590; 85027

== ENCOUNTER → 2022-02-09 | Outpatient (CLI) | payer BC ==
--- NOTE | 2022-02-09 16:05 | US ---
EXAMINATION TYPE: US abdomen complete DATE OF EXAM: 02/09/2022 COMPARISON: US 2019 CLINICAL HISTORY: R74.01ELEVATED LIVER TRANSAMINASE LEVELS. Elevated liver enzymes, history of cholec ystectomy EXAM MEASUREMENTS: Liver Length: 13.4 cm CBD: 0.6 cm Right Kidney: 9.5 x 4.7 x 5.0 cm Left Kidney: 10.0 x 5.1 x 4.9 cm Pancreas: visualized portions wnl, mostly obscured by overlying midline bowel gas Liver: course echotexture Gallbladder: surgically absent Evidence for sonographic Fu's sign: no CBD: visualized portions wnl, limited by overlying bowel gas Spleen: obscured by overlying bowel gas and rib shadowing Right Kidney: wnl Left Kidney: wnl Upper IVC: wnl Abd Aorta: wnl IMPRESSION: 1. Abdomen ultrasound as visualized appears unremarkable.
== END | disposition home or self-care (01) ==
LOC: RADUSWWP 08:01
PROVIDERS: ATTEND Family Medicine
DX: R74.01 Elevation of levels of liver transaminase levels (principal)
CPT/HCPCS: 76700

== ENCOUNTER → 2022-03-29 | Outpatient (CLI) | payer BC, MEDICARE ==
[2022-03-29 11:02] VITALS: BP 138/81; PULSE 70; RESP 16; TEMP 98.3; BMI 24.1
--- NOTE | 2022-03-29 11:16 | P.BASOAP ---
Subjective Progress Note Date: 03/29/22 Principal diagnosis: Morbid obesity 56-year-old female known to our service. Last seen in October. Patient is 1.5 years post sleeve gastrectomy. Doing well. Reflux still controlled with antiacids and Reglan. She has gained 9 pounds since her last visit. Feels well. Likes her weight at the 150 marked. Objective - Vital Signs Vital signs: Vital Signs Temp 98.3 F 03/29/22 10:57 Pulse 70 03/29/22 10:57 Resp 16 03/29/22 10:57 BP 138/81 03/29/22 10:57 Pulse Ox FiO2 Intake & Output 03/28/22 03/29/22 03/29/22 18:59 06:59 18:59 Weight 68.946 kg - Exam Abdomen: Soft, nontender, nondistended Assessment/Plan (1) Morbid obesity Narrative/Plan: 56-year-old female with history of morbid obesity. Doing well post sleeve gastrectomy. Continue Reglan and antiacids. Continue dietary and exercise regimen. Follow-up next October. We'll check a 2 year labs at that time. Plan: Date: 03/29/22 Initial Weight: 117.48 kg Initial BMI: 41.1 Current Weight: 68.946 kg Current BMI: 24.1 Type of Surgery: Vertical Sleeve Gastrectomy Total Volume in Band: Previous Volume: Volume Removed: Volume Added: Band Size:
== END | disposition home or self-care (01) ==
LOC: BARWHC3 09:56
PROVIDERS: ATTEND Surgery
DX: E66.01 Morbid (severe) obesity due to excess calories (principal); Z68.24 Body mass index [BMI] 24.0-24.9, adult
CPT/HCPCS: 99211

== ENCOUNTER → 2022-09-02 | Outpatient (CLI) | payer BC ==
--- NOTE | 2022-09-05 09:38 | MM ---
Reason for Exam: Screening (asymptomatic). Last screening mammogram was performed 12 month(s) ago. Patient History: Menarche at age 13. First Full-Term at age 19. Hysterectomy at age 44. Postmenopausal. 09/08/2011, Benign Core Biopsy on the left side. 02/15/2008, Benign Core Biopsy on the right side. Maternal grandmother had breast cancer, age 60. Risk Values: Lucy 5 year model risk: 1.4%. NCI Lifetime model risk: 9.7%. Prior Study Comparison: 03/01/2019 Bilateral Diagnostic Mammogram, [facility]. 08/04/2020 Bilateral Screening Mammogram, [facility]. 09/01/2021 Bilateral Screening Mammogram, [facility]. Tissue Density: The breast tissue is heterogeneously dense. This may lower the sensitivity of mammography. Findings: Analyzed By CAD. Mammotome biopsy clip posteriorly in the left breast is redemonstrated. There is occasional scattered benign-appearing round calcification throughout the bilateral breasts. There is no suspicious new group of microcalcifications or new suspicious mass in either breast. Overall Assessment: Benign, BI-RAD 2 Management: Screening Mammogram of both breasts in 1 year. Some advised bilateral breast ultrasound surveillance in patients with background dense tissue. A clinical breast exam by your physician is recommended on an annual basis and results should be correlated with mammographic findings. Electronically signed and approved by: Jeb Kurtz M.D.
== END | disposition home or self-care (01) ==
LOC: RADMAMWWP 09:17
PROVIDERS: ATTEND Family Medicine
DX: Z12.31 Encounter for screening mammogram for malignant neoplasm of breast (principal); Z78.0 Asymptomatic menopausal state; Z80.3 Family history of malignant neoplasm of breast
CPT/HCPCS: 77063; 77067

== ENCOUNTER → 2023-09-06 | Outpatient (CLI) | payer BC, MEDICARE ==
--- NOTE | 2023-09-09 23:25 | MM ---
Reason for Exam: Screening (asymptomatic). Last screening mammogram was performed 12 month(s) ago. Patient History: Menarche at age 13. First Full-Term at age 19. Hysterectomy at age 44. Postmenopausal. Patient has history of breast feeding. 09/08/2011, Benign Core Biopsy on the left side. 02/15/2008, Benign Core Biopsy on the right side. Maternal grandmother had breast cancer, age 60. Risk Values: Lucy 5 year model risk: 1.5%. NCI Lifetime model risk: 9.5%. Prior Study Comparison: 08/04/2020 Bilateral Screening Mammogram, [facility]. 09/01/2021 Bilateral Screening Mammogram, [facility]. 09/02/2022 Bilateral MG 3D screening mammo w/cad, [facility]. Tissue Density: The breast tissue is heterogeneously dense. This may lower the sensitivity of mammography. Findings: Analyzed By CAD. Unchanged bilateral areas of asymmetric density. There is no suspicious group of microcalcifications or new suspicious mass in either breast. Overall Assessment: Benign, BI-RAD 2 Management: Screening Mammogram of both breasts in 1 year. . Patient should continue monthly self-breast exams. A clinical breast exam by your physician is recommended on an annual basis. This exam should not preclude additional follow-up of suspicious palpable abnormalities. Note on Lucy scores and lifetime risk: 1. A Lucy score greater than 3% is considered moderate risk. If this is the case, consider specialist referral to assess eligibility for a risk reducing agent. 2. If overall lifetime risk for the development of breast cancer is 20% or higher, the patient may qualify for future screening with alternating mammogram and breast MRI. Electronically signed and approved by: Hernandez Dueñas M.D. Radiologist
== END | disposition home or self-care (01) ==
LOC: RADMAMWWP 08:44
PROVIDERS: ATTEND Family Medicine
DX: Z12.31 Encounter for screening mammogram for malignant neoplasm of breast (principal); Z80.3 Family history of malignant neoplasm of breast; Z78.0 Asymptomatic menopausal state
CPT/HCPCS: 77063; 77067

== ENCOUNTER → 2023-11-15 | Outpatient (CLI) | payer BC, MEDICARE ==
[2023-11-15] MEDS: SODIUM CHLORIDE 0.9% 500 ML 500 ML in EMPTY BAG 1 BAG IV PRN (10:00)
[2023-11-15] MEDS: ZOLEDRONIC ACID 5 MG in SODIUM CHLORIDE 0.9% 100 ML IV NR (10:01)
[2023-11-15 10:29] VITALS: BP 132/82; PULSE 76; RESP 16; TEMP 98
== END ==
LOC: PROCWHC3 09:29
PROVIDERS: ATTEND Family Medicine
DX: M81.0 Age-related osteoporosis without current pathological fracture (principal); Z88.0 Allergy status to penicillin; Z88.1 Allergy status to other antibiotic agents; Z88.8 Allergy status to other drugs, medicaments and biological substances
CPT/HCPCS: 96365; J3489

== ENCOUNTER → 2024-07-30 | Outpatient (CLI) | payer BC, MEDICARE ==
--- NOTE | 2024-08-03 14:17 | MR ---
EXAMINATION TYPE: MR lumbar spine wo/w con DATE OF EXAM: 07/30/2024 9:42 PM COMPARISON: 08/25/2021. CLINICAL INDICATION: Female, 58 years old with history of M48.062, M51.26, M54.16; PHH, Low back pain , numbness and tingling into left side, Hx 3 back surgeries TECHNIQUE: Multi planar, multi sequence imaging was performed utilizing: T1-weighted, T2-weighted, a nd turbo inversion recovery imaging of the lumbar spine. IV Contrast: 9 mL Gadobutrol (None, if empty) FINDINGS: Alignment: The lumbar vertebral bodies have preserved heights with mild retrolisthesis of L1 on L2 an d grade 1 anterolisthesis of L4 and L5.. Cord: The conus medullaris and the distal spinal cord appear unremarkable with regards to their signa l intensity and morphology. Bones/Discs: Fixation hardware at L2-L3 on L4 .Moderate degeneration changes throughout the spine wit h osteophyte formation and facet joint arthropathy. Intervertebral disc signal is maintained. Reactiv e adjoining endplate edema at L1-L2 adjoining endplates. T12-L1: No evidence of significant spinal canal stenosis or neural foraminal stenosis. L1-L2: Degeneration with disc bulge and retrolisthesis with mild to moderate spinal canal stenosis an d moderate to severe bilateral neural foraminal stenosis. L2-L3: Susceptibility artifact limits evaluation at this level. The spinal canal and neural foramen a ppear patent. L3-L4: Susceptibility artifact limits evaluation at this level. The spinal canal and neural foramen a ppear patent. L4-L5: Susceptibility artifact limits evaluation at this level. Disc uncovering from grade 1 anteroli sthesis and facet joint arthropathy with mild spinal canal stenosis and mild bilateral neural foramin al stenosis. L5-S1: The disc has a rounded posterior morphology without significant spinal canal stenosis. Facet j oint arthropathy with mild bilateral neural foraminal stenosis. No significant spinal canal or neural foraminal stenosis in the remainder of the visualized levels. Other findings: None. IMPRESSION: Overall findings not significantly changed from 08/25/2021. 1. Postsurgical changes present. Multilevel disc degeneration with associated osteoarthritic changes with findings worse at L1-L2 with moderate to severe bilateral neural foraminal stenosis and mild to moderate spinal canal stenosis. 2. No evidence for disc herniation. 3. Grade 1 anterolisthesis of L4 on L5. 4. Retrolisthesis of L1 on L2. [facility], , 08/03/2024 2:14 PM
== END | disposition home or self-care (01) ==
LOC: RADMRIMAIN 20:15
PROVIDERS: ATTEND Specialist
DX: M48.062 Spinal stenosis, lumbar region with neurogenic claudication (principal); M96.1 Postlaminectomy syndrome, not elsewhere classified; M51.16 Intervertebral disc disorders with radiculopathy, lumbar region; M43.16 Spondylolisthesis, lumbar region
CPT/HCPCS: 72158; A9585

== ENCOUNTER → 2024-09-13 | Outpatient (CLI) | payer BC, MEDICARE ==
--- NOTE | 2024-09-19 16:35 | MM ---
Reason for Exam: Screening (asymptomatic). Last screening mammogram was performed 12 month(s) ago. Patient History: Menarche at age 13. First Full-Term at age 19. Hysterectomy at age 44. Postmenopausal. Patient has history of breast feeding. 09/08/2011, Benign Core Biopsy on the left side. 02/15/2008, Benign Core Biopsy on the right side. Maternal grandmother had breast cancer, age 60. Risk Values: Lucy 5 year model risk: 1.5%. NCI Lifetime model risk: 9.3%. Prior Study Comparison: 09/01/2021 Bilateral Screening Mammogram, [facility]. 09/02/2022 Bilateral MG 3D screening mammo w/cad, [facility]. 09/06/2023 Bilateral MG 3D screening mammo w/cad, [facility]. Tissue Density: The breasts are heterogeneously dense, which may obscure small masses. Findings: Analyzed By CAD. Areas of asymmetric density on the right remain unchanged. There is no suspicious group of microcalcifications or new suspicious mass in either breast. Overall Assessment: Benign, BI-RAD 2 Management: Screening Mammogram of both breasts in 1 year. Patient should continue monthly self-breast exams. A clinical breast exam by your physician is recommended on an annual basis. This exam should not preclude additional follow-up of suspicious palpable abnormalities. Note on Lucy scores and lifetime risk: 1. A Lucy score greater than 3% is considered moderate risk. If this is the case, consider specialist referral to assess eligibility for a risk reducing agent. 2. If overall lifetime risk for the development of breast cancer is 20% or higher, the patient may qualify for future screening with alternating mammogram and breast MRI. [facility], , 09/19/2024 4:33 PM. Electronically signed and approved by: Hernandez Dueñas M.D. Radiologist
== END | disposition home or self-care (01) ==
LOC: RADMAMWWP 09:40
PROVIDERS: ATTEND Family Medicine
DX: Z12.31 Encounter for screening mammogram for malignant neoplasm of breast (principal); Z78.0 Asymptomatic menopausal state; Z80.3 Family history of malignant neoplasm of breast; R92.333 Mammographic heterogeneous density, bilateral breasts
CPT/HCPCS: 77063; 77067

== ENCOUNTER 2024-11-22 09:32 | Outpatient (CLI) | payer BC, MEDICARE ==
[~2024-11-22 09:32] MED LIST changes: -LACTATED RINGERS 1,000 ML IV SCH; +SODIUM CHLORIDE 0.9% 250 ML in EMPTY BAG 1 BAG IV PRN
[2024-11-22 09:56] VITALS: BP 149/90; PULSE 84; RESP 16; TEMP 97.9
[2024-11-22] MEDS: SODIUM CHLORIDE 0.9% 500 ML 500 ML in EMPTY BAG 1 BAG IV PRN (09:57)
[2024-11-22] MEDS: ZOLEDRONIC ACID 5 MG in SODIUM CHLORIDE 0.9% 100 ML IV NR (09:58)
== END 2024-11-29 10:15 | disposition home or self-care (01) ==
LOC: PROCWHC3 09:32
PROVIDERS: ATTEND Family Medicine
DX: M81.0 Age-related osteoporosis without current pathological fracture (principal); Z88.1 Allergy status to other antibiotic agents; Z88.8 Allergy status to other drugs, medicaments and biological substances
CPT/HCPCS: 96365; J3489